=== PATIENT | female | born 1985 | race Caucasian/White ===

== ENCOUNTER → 2020-08-12 11:35 | Outpatient (CLI) | payer OTHER, SELFPAY ==
--- NOTE | 2020-08-12 11:37 | DI.RAD.S_ITS ---
PROCEDURE: XR LUMBAR SPINE MIN 4V COMPARISON: None. INDICATIONS: Progressive lower back pain FINDINGS: 6 views of the lumbar spine demonstrate no fracture or subluxation. Vertebral body heights are maintained. There is disc space narrowing at L5-S1 consistent with disc disease at this level. The remaining intervertebral disc spaces are maintained. There are no focal osseous lesions. The sacroiliac joints and sacrum are intact. Visualized bowel gas pattern is nonspecific. IMPRESSION: 1. Degenerative disc disease at L5-S1. 2. No other significant abnormality. Dictated by: Aamir Collado M.D. on 08/12/2020 at 12:43 Approved by: Aamir Collado M.D. on 08/12/2020 at 12:44
== END ==
PROVIDERS: PCP Family Medicine; Referring Provider Family Medicine; Visit Provider Family Medicine
DX: M54.5 Low back pain (principal); M51.37 Other intervertebral disc degeneration, lumbosacral region
CPT/HCPCS: 72110

== ENCOUNTER 2020-12-03 08:15 | Outpatient (RCR) | payer OTHER, SELFPAY ==
--- NOTE | 2020-08-26 13:06 | PT.OIE ---
Current Diagnoses Low back pain (08/26/20) Abnormal posture (08/26/20) Weakness (08/26/20) Past Medical History (Last Updated 08/15/20 @ 19:30 by Jer Yanez DO) Exercise-induced asthma GERD (gastroesophageal reflux disease) Low back pain Visit Care Team Role Provider Type Jer Yanez DO Attending Provider Physician Primary Care Provider Referring Provider Specialty: [facility] Address: [address] [place] [address], [facility] Email: [email or web address] Initial Evaluation PT-OP-A Visit Information Start: 08/26/20 08:45 Freq: Status: Active Protocol: Document 08/26/20 08:56 SAK (Rec: 08/26/20 09:10 SAK [id number]) Out-Patient Physical Therapy Visit Information Visit Information Visit Type Initial Evaluation Visit Start Time 08:15 Visit Stop Time 09:05 Total Visit Minutes 50 Visit Number 1 Number of PROTOCOL OFFICER Visits 0 Evaluation Information Evaluation Date 08/26/20 PT-OP-B Current Condition Start: 08/26/20 08:45 Freq: Status: Active Protocol: Document 08/26/20 08:56 SAK (Rec: 08/26/20 09:10 SAK [id number]) Current Condition History of Current Condition Onset Date 8 years Current Complaints function-limiting LBP, posterior hip pain History of Current Condition pain comes and goes, no known cause. Worse with any lower body exercises, nagging pain, worst when flexed at trunk. Rarely tingling right foot. First noticed when she did lifts. Likes to run 3-5 miles per day but this currently causes pain. Tries to do core exercises but pain stopped her recently with double leg lift. One of most painful things is coughing and sneezing. 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 Prior Treatments and Tests x-ray: arthritis L5S1 Heat helpful, allergic to cold Treatment Goals Patient/Caregiver Goals Wants to be able to do usual exercise or activity without pain. Prior Functional Status Baseline Function- ADL's Independent Baseline Function- Mobility Independent Baseline Function- Gait no prob Baseline Function- Work/School no pain Current Functional Impairments (Reported) Functional Limitations- ADL's squatting painful Functional Limitations- Mobility/Gait some pain, variable Functional Limitations- Work/School not currently working due to recent move. 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 PT-OP-C Subjective Start: 08/26/20 08:45 Freq: Status: Active Protocol: Document 08/26/20 08:56 [facility] (Rec: 08/26/20 11:11 [facility] [id number]) Patient Questionnaires Oswestry Low Back Index Oswestry Score 6% OP-PT Pain Assessment Pain Assessment Grid Paper Pain Assessment Grid Completed Yes Location central lumbar spine, right buttock and lateral hip Intensity 4 Scale Used Numeric (0 - 10) Description Aching,Chronic,Pressure,Tender Pain Aggravating Factors Activity,Exercise,Bending, Lifting,Coughing Pain Alleviating Factors Heat,Inactivity,Rest Pain Behaviors Pain Behaviors Facial Grimacing,Wincing PT-OP-F Manual Assessment Start: 08/26/20 08:45 Freq: Status: Active Protocol: Document 08/26/20 08:56 [facility] (Rec: 08/26/20 11:11 [facility] [id number]) Manual Assessments Soft Tissue Assessment Soft Tissue Mobility Assessment decreased STM right piriformis Joint Mobility Assessment Joint Mobility Assessment decreased AP mobility lumbar spine PT-OP-G Mobility & Gait Start: 08/26/20 08:45 Freq: Status: Active Protocol: Document 08/26/20 08:56 [facility] (Rec: 08/26/20 11:11 [facility] [id number]) OP Mobility Evaluation Functional Movements Lifting and Carrying painful Squats painful OP Gait Assessment Gait Gait Assistance Required: Independent Assistive Devices Assistive Device None PT-OP-H Neuro Start: 08/26/20 08:45 Freq: Status: Active Protocol: Document 08/26/20 08:56 [facility] (Rec: 08/26/20 11:11 [facility] [id number]) Sensation Evaluation Gross Sensation Gross Sensation WNL Comments Summary Comments occasional tingling into right foot PT-OP-L Special Tests Start: 08/26/20 08:45 Freq: Status: Active Protocol: Document 08/26/20 08:56 [facility] (Rec: 08/26/20 11:11 [facility] [id number]) Special Tests Lumbar Spine Special Tests Stork Test Test Results increased movement right Straight Leg Raise Test Results negative gregorio Manual Traction Test Results positive decrease in pain PT-OP-M Strength Start: 08/26/20 08:45 Freq: Status: Active Protocol: Document 08/26/20 08:56 [facility] (Rec: 08/26/20 11:11 [facility] [id number]) Trunk Strength Trunk Manual Muscle Testing Testing Position Supine Flexion 4- Good- Extension 4- Good- Core Stabilization poor in sitting, fair supine Comments painful Hip Strength Hip Manual Muscle Testing Right Flexion (L2) 4- Good- Extension (S1) 4- Good- Abduction 4+ Good+ External Rotation 4- Good- Internal Rotation 4+ Good+ Left Flexion (L2) 4 Good Extension (S1) 4- Good- Abduction 4+ Good+ External Rotation 4- Good- Internal Rotation 4+ Good+ Knee Strength Knee Manual Muscle Testing gregorio Flexion (S2) 5 Normal Extension (L3) 5 Normal Ankle/Foot Strength Ankle and Foot Manual Muscle Testing gregorio Dorsiflexion (L4) 5 Normal Plantarflexion (S1) 5 Normal Toe Strength Toe Manual Muscle Testing Great Toe Extension 5 Normal Comments gregorio PT-OP-Q Treatments Start: 08/26/20 08:45 Freq: Status: Active Protocol: Document 08/26/20 08:56 [facility] (Rec: 08/26/20 11:11 [facility] [id number]) Self-Care/Home Management Treatment Education Patient Education Home Exercise Program Other Education issued written HEP PT-OP-R Modalities Start: 08/26/20 08:45 Freq: Status: Active Protocol: Document 08/26/20 08:56 [facility] (Rec: 08/26/20 11:11 [facility] [id number]) Hot Pack/Cold Pack Treatment Hot Pack Location lumbar spine, posterior hips Patient Position Hooklying Treatment Duration (minutes) 15 Patient Tolerance Good PT-OP-T Assessment and Plan Start: 08/26/20 08:45 Freq: Status: Active Protocol: Document 08/26/20 08:56 [facility] (Rec: 08/26/20 11:11 [facility] [id number]) Physical Therapy Assessment Impairments Impairments Activity Tolerance,Pain, Posture,Strength Goals 4 Impairment postural dysfunction Retirement Goal (LTG) Patient to demonstrate improved postural awareness and postural alignment statically, and dynamically with functional activities LTG Duration 10/25/20 3 Impairment decreased weakness in core and poor core stabilization Short Term Goal (STG) Patient to be instructed in HEP to address impairments STG Duration 09/24/20 Retirement Goal (LTG) Patient to be independent and compliant with HEP and will demonstrate improved core strength to 5/5 and good core stabilization during functional activities LTG Duration 10/25/20 2 Impairment pain with sneezing and coughing Administration Internship Goal (LTG) Patient will be able to sneeze or cough without pain LTG Duration 10/25/20 1 Impairment back, pelvis, and hip pain with usual exercises Administration Internship Goal (LTG) Patient will be able to perform modified HEP routine and return to running with minimal to no pain LTG Duration 10/25/20 Assessment Summary Assessment Patient presents with function -limiting pain in low back, right buttock and lateral hip with occasional radicular symptoms. Instability noted in pelvis right greater than left. X-ray showed arthritis L5S1. Impairments include poor core stabilization and core weakness, postural deficits, habitual positions and posturing, poor body mechanics. Feel patient sandra benefit from skilled physical therapy to help her improve her core strength and stabilization, improve her posture and body mechanics, and be instructed in HEP. Manual therapy may include manual traction and soft tissue mobilization, and may include modalities for pain management. Physical Therapy Plan Frequency and Duration Frequency of Treatment 2x/Week Duration of Treatment 8 weeks Plan of Care Start Date 08/26/20 Plan of Care End Date 10/25/20 Therapeutic Interventions Therapeutic Interventions Home Exercise Program,Joint Mobilizations,Manual Therapy, Neuromuscular Re-education, Patient/Caregiver Education, Self-Care/Home Management,Soft Tissue Mobilization,Taping, Therapeutic Activities, Therapeutic Exercises Modalities Electric Stimulation,Hot Packs ,Traction- Mechanical, Ultrasound Next Visit Focus/Plan Next Note Type Treatment Note Next Visit Plan Review HEP, discuss posture photos, add wall posture exercise. Further patient education regarding spinal stabilization with functional activities and avoidance of possible habitual positions contributing to poain
--- NOTE | 2020-08-26 13:07 | PT.OPPOC ---
Physical, Occupational & Speech Therapy At [facility] Current Diagnoses Low back pain (08/26/20) Abnormal posture (08/26/20) Weakness (08/26/20) Visit Care Team Role Provider Type Jer Yanez DO Attending Provider Physician Primary Care Provider Referring Provider Specialty: [facility] Address: [address] [place] [address], [facility] Email: [email or web address] Plan Of Care PT-OP-T Assessment and Plan Start: 08/26/20 08:45 Freq: Status: Active Protocol: Document 08/26/20 08:56 [facility] (Rec: 08/26/20 11:11 SAK [id number]) Physical Therapy Assessment Impairments Impairments Activity Tolerance,Pain, Posture,Strength Goals 4 Impairment postural dysfunction [facility] Goal (LTG) Patient to demonstrate improved postural awareness and postural alignment statically, and dynamically with functional activities LTG Duration 10/25/20 3 Impairment decreased weakness in core and poor core stabilization Short Term Goal (STG) Patient to be instructed in HEP to address impairments STG Duration 09/24/20 [facility] Goal (LTG) Patient to be independent and compliant with HEP and will demonstrate improved core strength to 5/5 and good core stabilization during functional activities LTG Duration 10/25/20 2 Impairment pain with sneezing and coughing [facility] Goal (LTG) Patient will be able to sneeze or cough without pain LTG Duration 10/25/20 1 Impairment back, pelvis, and hip pain with usual exercises [facility] Goal (LTG) Patient will be able to perform modified HEP routine and return to running with minimal to no pain LTG Duration 10/25/20 Assessment Summary Assessment Patient presents with function -limiting pain in low back, right buttock and lateral hip with occasional radicular symptoms. Instability noted in pelvis right greater than left. X-ray showed arthritis L5S1. Impairments include poor core stabilization and core weakness, postural deficits, habitual positions and posturing, poor body mechanics. Feel patient sandra benefit from skilled physical therapy to help her improve her core strength and stabilization, improve her posture and body mechanics, and be instructed in HEP. Manual therapy may include manual traction and soft tissue mobilization, and may include modalities for pain management. Physical Therapy Plan Frequency and Duration Frequency of Treatment 2x/Week Duration of Treatment 8 weeks Plan of Care Start Date 08/26/20 Plan of Care End Date 10/25/20 Therapeutic Interventions Therapeutic Interventions Home Exercise Program,Joint Mobilizations,Manual Therapy, Neuromuscular Re-education, Patient/Caregiver Education, Self-Care/Home Management,Soft Tissue Mobilization,Taping, Therapeutic Activities, Therapeutic Exercises Modalities Electric Stimulation,Hot Packs ,Traction- Mechanical, Ultrasound Next Visit Focus/Plan Next Note Type Treatment Note Next Visit Plan Review HEP, discuss posture photos, add wall posture exercise. Further patient education regarding spinal stabilization with functional activities and avoidance of possible habitual positions contributing to poain Plan of Care Dates Plan of Care Start Date 08/26/20 Plan of Care End Date 10/25/20 Electronically Signed by: Argelia Peck, PT 08/26/20 [id number] Please Sign and Return: I have reviewed this Plan of Care and certify that the skilled therapy services above are required to meet the patient?s needs. Physician Signature Date Printed Name and Credentials Clinical Instructor Signature Printed Name and Credentials
--- NOTE | 2020-08-28 17:01 | PT.OTN ---
Current Diagnoses Low back pain (08/28/20) Abnormal posture (08/28/20) Weakness (08/28/20) Physical Therapy Treatment Note PT-OP-A Visit Information Start: 08/26/20 08:45 Freq: Status: Active Protocol: Document 08/28/20 08:13 SAK (Rec: 08/28/20 09:10 [facility] [id number]) Out-Patient Physical Therapy Visit Information Visit Information Visit Type Treatment Note Visit Start Time 08:15 Visit Stop Time 09:14 Total Visit Minutes 59 Visit Number 2 Number of TELEPHONE MAINTAINER Visits 0 PT-OP-B Current Condition Start: 08/26/20 08:45 Freq: Status: Active Protocol: Document 08/28/20 08:13 SAK (Rec: 08/28/20 09:10 [facility] [id number]) Current Condition History of Current Condition Onset Date 8 years Current Complaints function-limiting LBP, posterior hip pain History of Current Condition pain comes and goes, no known cause. Worse with any lower body exercises, nagging pain, worst when flexed at trunk. Rarely tingling right foot. First noticed when she did lifts. Likes to run 3-5 miles per day but this currently causes pain. Tries to do core exercises but pain stopped her recently with double leg lift. One of most painful things is coughing and sneezing. Also c/o pain when she bends forward to pickle maker her dog. Prior Treatments and Tests x-ray: arthritis L5S1 Heat helpful, allergic to cold PT-OP-C Subjective Start: 08/26/20 08:45 Freq: Status: Active Protocol: Document 08/28/20 08:13 SAK (Rec: 08/28/20 09:10 [facility] [id number]) OP-PT Subjective Patient Comments Patient Comments Reports being surprised her pain is already a little better, not quite as stiff this am. PT-OP-F Manual Assessment Start: 08/26/20 08:45 Freq: Status: Active Protocol: Document 08/26/20 08:56 SAK (Rec: 08/26/20 11:11 [facility] [id number]) Manual Assessments Soft Tissue Assessment Soft Tissue Mobility Assessment decreased STM right piriformis Joint Mobility Assessment Joint Mobility Assessment decreased AP mobility lumbar spine PT-OP-G Mobility & Gait Start: 08/26/20 08:45 Freq: Status: Active Protocol: Document 08/26/20 08:56 SAK (Rec: 08/26/20 11:11 [facility] [id number]) OP Mobility Evaluation Functional Movements Lifting and Carrying painful Squats painful OP Gait Assessment Gait Gait Assistance Required: Independent Assistive Devices Assistive Device None PT-OP-H Neuro Start: 08/26/20 08:45 Freq: Status: Active Protocol: Document 08/26/20 08:56 [facility] (Rec: 08/26/20 11:11 [facility] [id number]) Sensation Evaluation Gross Sensation Gross Sensation WNL Comments Summary Comments occasional tingling into right foot PT-OP-L Special Tests Start: 08/26/20 08:45 Freq: Status: Active Protocol: Document 08/26/20 08:56 [facility] (Rec: 08/26/20 11:11 [facility] [id number]) Special Tests Lumbar Spine Special Tests Stork Test Test Results increased movement right Straight Leg Raise Test Results negative gregorio Manual Traction Test Results positive decrease in pain PT-OP-M Strength Start: 08/26/20 08:45 Freq: Status: Active Protocol: Document 08/26/20 08:56 [facility] (Rec: 08/26/20 11:11 [facility] [id number]) Trunk Strength Trunk Manual Muscle Testing Testing Position Supine Flexion 4- Good- Extension 4- Good- Core Stabilization poor in sitting, fair supine Comments painful Hip Strength Hip Manual Muscle Testing Right Flexion (L2) 4- Good- Extension (S1) 4- Good- Abduction 4+ Good+ External Rotation 4- Good- Internal Rotation 4+ Good+ Left Flexion (L2) 4 Good Extension (S1) 4- Good- Abduction 4+ Good+ External Rotation 4- Good- Internal Rotation 4+ Good+ Knee Strength Knee Manual Muscle Testing gregorio Flexion (S2) 5 Normal Extension (L3) 5 Normal Ankle/Foot Strength Ankle and Foot Manual Muscle Testing gregorio Dorsiflexion (L4) 5 Normal Plantarflexion (S1) 5 Normal Toe Strength Toe Manual Muscle Testing Great Toe Extension 5 Normal Comments gregorio PT-OP-Q Treatments Start: 08/26/20 08:45 Freq: Status: Active Protocol: Document 08/28/20 08:13 SAK (Rec: 08/28/20 09:10 [facility] [id number]) Therapeutic Exercises Supine Exercises bridge Reps/Minutes 10x Comments segmental Sidelying Exercises hip abd Reps/Minutes 10x Comments cues for activating core, keeping LE's parallel reverse clam Reps/Minutes 10x clam Reps/Minutes 10x Comments verbal and manual cues Standing Exercises squats Reps/Minutes 10x Comments emphasis on gluteal activation wall posture Reps/Minutes 10x Other Exercises quadriped UE/LE lift Reps/Minutes 10x Comments verbal and manual cues for technique and alignment Gait Training Gait Activity pre-gait gluteal activation Distance/Duration 3 min Self-Care/Home Management Treatment Education Other Education bed positioning (patient tendency is to sleep on stomach, right LE pulled up) PT-OP-R Modalities Start: 08/26/20 08:45 Freq: Status: Active Protocol: Document 08/28/20 08:13 SAK (Rec: 08/28/20 09:10 SAK [id number]) Hot Pack/Cold Pack Treatment Hot Pack Location lumbar spine, posterior hips Patient Position Hooklying Treatment Duration (minutes) 15 Patient Tolerance Good PT-OP-T Assessment and Plan Start: 08/26/20 08:45 Freq: Status: Active Protocol: Document 08/28/20 08:13 SAK (Rec: 08/28/20 09:10 SAK [id number]) Physical Therapy Assessment Goals 4 Impairment postural dysfunction Computator Goal (LTG) Patient to demonstrate improved postural awareness and postural alignment statically, and dynamically with functional activities LTG Duration 10/25/20 3 Impairment decreased weakness in core and poor core stabilization Short Term Goal (STG) Patient to be instructed in HEP to address impairments STG Duration 09/24/20 Halfway Goal (LTG) Patient to be independent and compliant with HEP and will demonstrate improved core strength to 5/5 and good core stabilization during functional activities LTG Duration 10/25/20 2 Impairment pain with sneezing and coughing Halfway Goal (LTG) Patient will be able to sneeze or cough without pain LTG Duration 10/25/20 1 Impairment back, pelvis, and hip pain with usual exercises Computator Goal (LTG) Patient will be able to perform modified HEP routine and return to running with minimal to no pain LTG Duration 10/25/20 Assessment Summary Assessment Patient reported benefit from first PT visit, compliant to HEP. Needs mod verbal and manual cues for postural alignment and core stabilization with all therapeutic exercises as she tends toward excess extension at lower lumbar region statically, and dynamically with function and ther ex including end of squats Physical Therapy Plan Frequency and Duration Frequency of Treatment 2x/Week Duration of Treatment 8 weeks Plan of Care Start Date 08/26/20 Plan of Care End Date 10/25/20 Therapeutic Interventions Therapeutic Interventions Home Exercise Program,Joint Mobilizations,Manual Therapy, Neuromuscular Re-education, Patient/Caregiver Education, Self-Care/Home Management,Soft Tissue Mobilization,Taping, Therapeutic Activities, Therapeutic Exercises Modalities Hot Packs,Traction- Mechanical ,Ultrasound Next Visit Focus/Plan Next Note Type Treatment Note Next Visit Plan Review posture and body mechanics principles, assess squat form, wall posture, quadriped arm and leg lift form. Sport cord with emphasis on alignment and core stabiization
--- NOTE | 2020-09-02 08:40 | PT-OP ANOTE ---
cancelled appt via [email or web address]
--- NOTE | 2020-09-04 15:00 | PT.OTN ---
Current Diagnoses Low back pain (09/04/20) Abnormal posture (09/04/20) Weakness (09/04/20) Physical Therapy Treatment Note PT-OP-A Visit Information Start: 08/26/20 08:45 Freq: Status: Active Protocol: Document 09/02/20 08:40 SAK (Rec: 09/02/20 08:40 SAK [id number]) Out-Patient Physical Therapy Visit Information Visit Information Visit Type Cancellation Visit Note via Televox PT-OP-B Current Condition Start: 08/26/20 08:45 Freq: Status: Active Protocol: Document 08/28/20 08:13 SAK (Rec: 08/28/20 09:10 SAK [id number]) Current Condition History of Current Condition Onset Date 8 years Current Complaints function-limiting LBP, posterior hip pain History of Current Condition pain comes and goes, no known cause. Worse with any lower body exercises, nagging pain, worst when flexed at trunk. Rarely tingling right foot. First noticed when she did lifts. Likes to run 3-5 miles per day but this currently causes pain. Tries to do core exercises but pain stopped her recently with double leg lift. One of most painful things is coughing and sneezing. Also c/o pain when she bends forward to seed cone picker her dog. Prior Treatments and Tests x-ray: arthritis L5S1 Heat helpful, allergic to cold PT-OP-C Subjective Start: 08/26/20 08:45 Freq: Status: Active Protocol: Document 09/04/20 09:04 SAK (Rec: 09/04/20 09:49 SAK [id number]) OP-PT Subjective Patient Comments Patient Comments Went snowboarding, some increase in pain. Ran 1 1/2 miles also still had some pain . Feels exercises are helpful, working on not hyperextending through her spine with squats . Unable to do a lift due to pain PT-OP-F Manual Assessment Start: 08/26/20 08:45 Freq: Status: Active Protocol: Document 08/26/20 08:56 SAK (Rec: 08/26/20 11:11 SAK [id number]) Manual Assessments Soft Tissue Assessment Soft Tissue Mobility Assessment decreased STM right piriformis Joint Mobility Assessment Joint Mobility Assessment decreased AP mobility lumbar spine PT-OP-G Mobility & Gait Start: 08/26/20 08:45 Freq: Status: Active Protocol: Document 08/26/20 08:56 [facility] (Rec: 08/26/20 11:11 [facility] [id number]) OP Mobility Evaluation Functional Movements Lifting and Carrying painful Squats painful OP Gait Assessment Gait Gait Assistance Required: Independent Assistive Devices Assistive Device None PT-OP-H Neuro Start: 08/26/20 08:45 Freq: Status: Active Protocol: Document 08/26/20 08:56 SAK (Rec: 08/26/20 11:11 [facility] [id number]) Sensation Evaluation Gross Sensation Gross Sensation WNL Comments Summary Comments occasional tingling into right foot PT-OP-L Special Tests Start: 08/26/20 08:45 Freq: Status: Active Protocol: Document 08/26/20 08:56 [facility] (Rec: 08/26/20 11:11 [facility] [id number]) Special Tests Lumbar Spine Special Tests Stork Test Test Results increased movement right Straight Leg Raise Test Results negative gregorio Manual Traction Test Results positive decrease in pain PT-OP-M Strength Start: 08/26/20 08:45 Freq: Status: Active Protocol: Document 08/26/20 08:56 [facility] (Rec: 08/26/20 11:11 [facility] [id number]) Trunk Strength Trunk Manual Muscle Testing Testing Position Supine Flexion 4- Good- Extension 4- Good- Core Stabilization poor in sitting, fair supine Comments painful Hip Strength Hip Manual Muscle Testing Right Flexion (L2) 4- Good- Extension (S1) 4- Good- Abduction 4+ Good+ External Rotation 4- Good- Internal Rotation 4+ Good+ Left Flexion (L2) 4 Good Extension (S1) 4- Good- Abduction 4+ Good+ External Rotation 4- Good- Internal Rotation 4+ Good+ Knee Strength Knee Manual Muscle Testing gregorio Flexion (S2) 5 Normal Extension (L3) 5 Normal Ankle/Foot Strength Ankle and Foot Manual Muscle Testing gregorio Dorsiflexion (L4) 5 Normal Plantarflexion (S1) 5 Normal Toe Strength Toe Manual Muscle Testing Great Toe Extension 5 Normal Comments gregorio PT-OP-Q Treatments Start: 08/26/20 08:45 Freq: Status: Active Protocol: Document 09/04/20 09:04 SAK (Rec: 09/04/20 09:49 SAK [id number]) Cardio Equipment Treadmill Duration (Minutes) 10 Speed 3.5, 5.0 Incline 0 Other filming with patient's cell phone to assess form Gym Equipment Shuttle Balance chains red Reps/Duration 5 Comments emphais on core activation, neutral spine Therapeutic Exercises Supine Exercises LTR Equipment Used ball Reps/Minutes 10x groin Reps/Minutes 2x Comments strap IT band Supine Exercise Name stretch Reps/Minutes 2x Comments strap hamstring stretch Reps/Minutes 2x Comments strap bridge Reps/Minutes 10x Comments segmental Standing Exercises squats Reps/Minutes 10x Comments emphasis on gluteal activation , no lumbar hyperextension Self-Care/Home Management Treatment Education Patient Education Body Mechanics,Posture Other Education neutral posture statically and dynamically including with walking and running; using video taken by PT with patient 's cell phone PT-OP-R Modalities Start: 08/26/20 08:45 Freq: Status: Active Protocol: Document 08/28/20 08:13 SAK (Rec: 08/28/20 09:10 SAK [id number]) Hot Pack/Cold Pack Treatment Hot Pack Location lumbar spine, posterior hips Patient Position Hooklying Treatment Duration (minutes) 15 Patient Tolerance Good PT-OP-T Assessment and Plan Start: 08/26/20 08:45 Freq: Status: Active Protocol: Document 09/04/20 09:04 SAK (Rec: 09/04/20 09:49 SAK [id number]) Physical Therapy Assessment Rehab Potential Rehabilitation Potential Good Impairments Impairments Activity Tolerance,Pain, Posture,Strength Goals 4 Impairment postural dysfunction Care Home Goal (LTG) Patient to demonstrate improved postural awareness and postural alignment statically, and dynamically with functional activities LTG Duration 10/25/20 3 Impairment decreased weakness in core and poor core stabilization Short Term Goal (STG) Patient to be instructed in HEP to address impairments STG Duration 09/24/20 Care Home Goal (LTG) Patient to be independent and compliant with HEP and will demonstrate improved core strength to 5/5 and good core stabilization during functional activities LTG Duration 10/25/20 2 Impairment pain with sneezing and coughing Care Home Goal (LTG) Patient will be able to sneeze or cough without pain LTG Duration 10/25/20 1 Impairment back, pelvis, and hip pain with usual exercises Care Home Goal (LTG) Patient will be able to perform modified HEP routine and return to running with minimal to no pain LTG Duration 10/25/20 Assessment Summary Assessment Patient has difficulty avoiding hyperextension through lumbar spine with all activities, needs frequent cues. Video used to educate patient further on alignment during walking and running on treadmill. Physical Therapy Plan Frequency and Duration Frequency of Treatment 2x/Week Duration of Treatment 8 weeks Plan of Care Start Date 08/26/20 Plan of Care End Date 10/25/20 Therapeutic Interventions Therapeutic Interventions Home Exercise Program,Joint Mobilizations,Manual Therapy, Neuromuscular Re-education, Patient/Caregiver Education, Self-Care/Home Management,Soft Tissue Mobilization,Taping, Therapeutic Activities, Therapeutic Exercises Modalities Hot Packs,Traction- Mechanical ,Ultrasound Next Visit Focus/Plan Next Note Type Treatment Note Next Visit Plan Sport cord next session (ran out of time today). Continue therapeutic exercise progression with emphasis on postural alignment and core stabilization.
--- NOTE | 2020-09-04 15:01 | PT.OTN ---
Current Diagnoses Low back pain (09/04/20) Abnormal posture (09/04/20) Weakness (09/04/20) Physical Therapy Treatment Note PT-OP-A Visit Information Start: 08/26/20 08:45 Freq: Status: Active Protocol: Document 09/04/20 09:04 SAK (Rec: 09/04/20 15:01 SAK [id number]) Out-Patient Physical Therapy Visit Information Visit Information Visit Type Treatment Note Visit Start Time 09:00 Visit Stop Time 09:45 Total Visit Minutes 45 Visit Number 3 PT-OP-B Current Condition Start: 08/26/20 08:45 Freq: Status: Active Protocol: Document 08/28/20 08:13 SAK (Rec: 08/28/20 09:10 SAK [id number]) Current Condition History of Current Condition Onset Date 8 years Current Complaints function-limiting LBP, posterior hip pain History of Current Condition pain comes and goes, no known cause. Worse with any lower body exercises, nagging pain, worst when flexed at trunk. Rarely tingling right foot. First noticed when she did lifts. Likes to run 3-5 miles per day but this currently causes pain. Tries to do core exercises but pain stopped her recently with double leg lift. One of most painful things is coughing and sneezing. Also c/o pain when she bends forward to pick up attendant her dog. Prior Treatments and Tests x-ray: arthritis L5S1 Heat helpful, allergic to cold PT-OP-C Subjective Start: 08/26/20 08:45 Freq: Status: Active Protocol: Document 09/04/20 09:04 SAK (Rec: 09/04/20 09:49 SAK [id number]) OP-PT Subjective Patient Comments Patient Comments Went snowboarding, some increase in pain. Ran 1 1/2 miles also still had some pain . Feels exercises are helpful, working on not hyperextending through her spine with squats . Unable to do a lift due to pain PT-OP-F Manual Assessment Start: 08/26/20 08:45 Freq: Status: Active Protocol: Document 08/26/20 08:56 SAK (Rec: 08/26/20 11:11 SAK [id number]) Manual Assessments Soft Tissue Assessment Soft Tissue Mobility Assessment decreased STM right piriformis Joint Mobility Assessment Joint Mobility Assessment decreased AP mobility lumbar spine PT-OP-G Mobility & Gait Start: 08/26/20 08:45 Freq: Status: Active Protocol: Document 08/26/20 08:56 [facility] (Rec: 08/26/20 11:11 [facility] [id number]) OP Mobility Evaluation Functional Movements Lifting and Carrying painful Squats painful OP Gait Assessment Gait Gait Assistance Required: Independent Assistive Devices Assistive Device None PT-OP-H Neuro Start: 08/26/20 08:45 Freq: Status: Active Protocol: Document 08/26/20 08:56 [facility] (Rec: 08/26/20 11:11 [facility] [id number]) Sensation Evaluation Gross Sensation Gross Sensation WNL Comments Summary Comments occasional tingling into right foot PT-OP-L Special Tests Start: 08/26/20 08:45 Freq: Status: Active Protocol: Document 08/26/20 08:56 [facility] (Rec: 08/26/20 11:11 [facility] [id number]) Special Tests Lumbar Spine Special Tests Stork Test Test Results increased movement right Straight Leg Raise Test Results negative gregorio Manual Traction Test Results positive decrease in pain PT-OP-M Strength Start: 08/26/20 08:45 Freq: Status: Active Protocol: Document 08/26/20 08:56 [facility] (Rec: 08/26/20 11:11 [facility] [id number]) Trunk Strength Trunk Manual Muscle Testing Testing Position Supine Flexion 4- Good- Extension 4- Good- Core Stabilization poor in sitting, fair supine Comments painful Hip Strength Hip Manual Muscle Testing Right Flexion (L2) 4- Good- Extension (S1) 4- Good- Abduction 4+ Good+ External Rotation 4- Good- Internal Rotation 4+ Good+ Left Flexion (L2) 4 Good Extension (S1) 4- Good- Abduction 4+ Good+ External Rotation 4- Good- Internal Rotation 4+ Good+ Knee Strength Knee Manual Muscle Testing gregorio Flexion (S2) 5 Normal Extension (L3) 5 Normal Ankle/Foot Strength Ankle and Foot Manual Muscle Testing gregorio Dorsiflexion (L4) 5 Normal Plantarflexion (S1) 5 Normal Toe Strength Toe Manual Muscle Testing Great Toe Extension 5 Normal Comments gregorio PT-OP-Q Treatments Start: 08/26/20 08:45 Freq: Status: Active Protocol: Document 09/04/20 09:04 SAK (Rec: 09/04/20 09:49 [facility] [id number]) Cardio Equipment Treadmill Duration (Minutes) 10 Speed 3.5, 5.0 Incline 0 Other filming with patient's cell phone to assess form Gym Equipment Shuttle Balance chains red Reps/Duration 5 Comments emphais on core activation, neutral spine Therapeutic Exercises Supine Exercises LTR Equipment Used ball Reps/Minutes 10x groin Reps/Minutes 2x Comments strap IT band Supine Exercise Name stretch Reps/Minutes 2x Comments strap hamstring stretch Reps/Minutes 2x Comments strap bridge Reps/Minutes 10x Comments segmental Standing Exercises squats Reps/Minutes 10x Comments emphasis on gluteal activation , no lumbar hyperextension Self-Care/Home Management Treatment Education Patient Education Body Mechanics,Posture Other Education neutral posture statically and dynamically including with walking and running; using video taken by PT with patient 's cell phone PT-OP-R Modalities Start: 08/26/20 08:45 Freq: Status: Active Protocol: Document 08/28/20 08:13 SAK (Rec: 08/28/20 09:10 SAK [id number]) Hot Pack/Cold Pack Treatment Hot Pack Location lumbar spine, posterior hips Patient Position Hooklying Treatment Duration (minutes) 15 Patient Tolerance Good PT-OP-T Assessment and Plan Start: 08/26/20 08:45 Freq: Status: Active Protocol: Document 09/04/20 09:04 SAK (Rec: 09/04/20 09:49 SAK [id number]) Physical Therapy Assessment Rehab Potential Rehabilitation Potential Good Impairments Impairments Activity Tolerance,Pain, Posture,Strength Goals 4 Impairment postural dysfunction Long-Term Goal (LTG) Patient to demonstrate improved postural awareness and postural alignment statically, and dynamically with functional activities LTG Duration 10/25/20 3 Impairment decreased weakness in core and poor core stabilization Short Term Goal (STG) Patient to be instructed in HEP to address impairments STG Duration 09/24/20 Long-Term Goal (LTG) Patient to be independent and compliant with HEP and will demonstrate improved core strength to 5/5 and good core stabilization during functional activities LTG Duration 10/25/20 2 Impairment pain with sneezing and coughing Long-Term Goal (LTG) Patient will be able to sneeze or cough without pain LTG Duration 10/25/20 1 Impairment back, pelvis, and hip pain with usual exercises Bail Bond Agent Goal (LTG) Patient will be able to perform modified HEP routine and return to running with minimal to no pain LTG Duration 10/25/20 Assessment Summary Assessment Patient has difficulty avoiding hyperextension through lumbar spine with all activities, needs frequent cues. Video used to educate patient further on alignment during walking and running on treadmill. Physical Therapy Plan Frequency and Duration Frequency of Treatment 2x/Week Duration of Treatment 8 weeks Plan of Care Start Date 08/26/20 Plan of Care End Date 10/25/20 Therapeutic Interventions Therapeutic Interventions Home Exercise Program,Joint Mobilizations,Manual Therapy, Neuromuscular Re-education, Patient/Caregiver Education, Self-Care/Home Management,Soft Tissue Mobilization,Taping, Therapeutic Activities, Therapeutic Exercises Modalities Hot Packs,Traction- Mechanical ,Ultrasound Next Visit Focus/Plan Next Note Type Treatment Note Next Visit Plan Sport cord next session (ran out of time today). Continue therapeutic exercise progression with emphasis on postural alignment and core stabilization.
--- NOTE | 2020-09-25 10:24 | PT.OTN ---
Current Diagnoses Low back pain (09/25/20) Abnormal posture (09/25/20) Weakness (09/25/20) Physical Therapy Treatment Note PT-OP-A Visit Information Start: 08/26/20 08:45 Freq: Status: Active Protocol: Document 09/25/20 08:16 SAK (Rec: 09/25/20 09:05 SAK [id number]) Out-Patient Physical Therapy Visit Information Visit Information Visit Type Treatment Note Visit Start Time 08:16 Visit Stop Time 06:12 Total Visit Minutes 56 Visit Number 4 PT-OP-B Current Condition Start: 08/26/20 08:45 Freq: Status: Active Protocol: Document 08/28/20 08:13 SAK (Rec: 08/28/20 09:10 SAK [id number]) Current Condition History of Current Condition Onset Date 8 years Current Complaints function-limiting LBP, posterior hip pain History of Current Condition pain comes and goes, no known cause. Worse with any lower body exercises, nagging pain, worst when flexed at trunk. Rarely tingling right foot. First noticed when she did lifts. Likes to run 3-5 miles per day but this currently causes pain. Tries to do core exercises but pain stopped her recently with double leg lift. One of most painful things is coughing and sneezing. Also c/o pain when she bends forward to brain picker her dog. Prior Treatments and Tests x-ray: arthritis L5S1 Heat helpful, allergic to cold PT-OP-C Subjective Start: 08/26/20 08:45 Freq: Status: Active Protocol: Document 09/25/20 08:16 SAK (Rec: 09/25/20 09:05 SAK [id number]) OP-PT Subjective Patient Comments Patient Comments Feels she is doing her exercises better,trying to focus on not hyperextending, some less pain, has been able to run a little but reports still has pain after. PT-OP-F Manual Assessment Start: 08/26/20 08:45 Freq: Status: Active Protocol: Document 08/26/20 08:56 SAK (Rec: 08/26/20 11:11 SAK [id number]) Manual Assessments Soft Tissue Assessment Soft Tissue Mobility Assessment decreased STM right piriformis Joint Mobility Assessment Joint Mobility Assessment decreased AP mobility lumbar spine PT-OP-G Mobility & Gait Start: 08/26/20 08:45 Freq: Status: Active Protocol: Document 08/26/20 08:56 [facility] (Rec: 08/26/20 11:11 [facility] [id number]) OP Mobility Evaluation Functional Movements Lifting and Carrying painful Squats painful OP Gait Assessment Gait Gait Assistance Required: Independent Assistive Devices Assistive Device None PT-OP-H Neuro Start: 08/26/20 08:45 Freq: Status: Active Protocol: Document 08/26/20 08:56 [facility] (Rec: 08/26/20 11:11 [facility] [id number]) Sensation Evaluation Gross Sensation Gross Sensation WNL Comments Summary Comments occasional tingling into right foot PT-OP-L Special Tests Start: 08/26/20 08:45 Freq: Status: Active Protocol: Document 08/26/20 08:56 [facility] (Rec: 08/26/20 11:11 [facility] [id number]) Special Tests Lumbar Spine Special Tests Stork Test Test Results increased movement right Straight Leg Raise Test Results negative gregorio Manual Traction Test Results positive decrease in pain PT-OP-M Strength Start: 08/26/20 08:45 Freq: Status: Active Protocol: Document 08/26/20 08:56 [facility] (Rec: 08/26/20 11:11 [facility] [id number]) Trunk Strength Trunk Manual Muscle Testing Testing Position Supine Flexion 4- Good- Extension 4- Good- Core Stabilization poor in sitting, fair supine Comments painful Hip Strength Hip Manual Muscle Testing Right Flexion (L2) 4- Good- Extension (S1) 4- Good- Abduction 4+ Good+ External Rotation 4- Good- Internal Rotation 4+ Good+ Left Flexion (L2) 4 Good Extension (S1) 4- Good- Abduction 4+ Good+ External Rotation 4- Good- Internal Rotation 4+ Good+ Knee Strength Knee Manual Muscle Testing gregorio Flexion (S2) 5 Normal Extension (L3) 5 Normal Ankle/Foot Strength Ankle and Foot Manual Muscle Testing gregorio Dorsiflexion (L4) 5 Normal Plantarflexion (S1) 5 Normal Toe Strength Toe Manual Muscle Testing Great Toe Extension 5 Normal Comments gregorio PT-OP-Q Treatments Start: 08/26/20 08:45 Freq: Status: Active Protocol: Document 09/25/20 08:16 SAK (Rec: 09/25/20 09:05 SAK [id number]) Gym Equipment Sport Cord 1 Exercise Details forward walk, end-range slow march Cord/Resistance green Reps/Duration 8x Therapeutic Exercises Supine Exercises bridge Reps/Minutes 10x, 5x Comments segmental, then single leg Standing Exercises sit to stand Equipment Used yardstick for postural alignment Reps/Minutes 10x squats Standing Exercise Name working toward lift Equipment Used yardstick for postural alignment Reps/Minutes 10x Comments emphasis on gluteal activation , no lumbar hyperextension wall posture Reps/Minutes 10x Comments including roll-ups and UE's overhead Gait Training Gait Activity 1 Description forward Surface level Distance/Duration 5 min Treatment Focus neutral posture, positioning ribcage over pelvis Self-Care/Home Management Treatment Education Patient Education Body Mechanics,Posture Other Education neutral posture statically and dynamically including with reaching, lifting, loss prevention supervisor loading/unloading PT-OP-R Modalities Start: 08/26/20 08:45 Freq: Status: Active Protocol: Document 09/25/20 08:16 [facility] (Rec: 09/25/20 10:24 [facility] [id number]) Hot Pack/Cold Pack Treatment Cold Pack Patient Position Hooklying Treatment Duration (minutes) 10 Comments 90/90 posistion PT-OP-T Assessment and Plan Start: 08/26/20 08:45 Freq: Status: Active Protocol: Document 09/25/20 08:16 [facility] (Rec: 09/25/20 10:24 [facility] [id number]) Physical Therapy Assessment Goals 4 Impairment postural dysfunction Skilled Nursing Goal (LTG) Patient to demonstrate improved postural awareness and postural alignment statically, and dynamically with functional activities LTG Duration 10/25/20 3 Impairment decreased weakness in core and poor core stabilization Short Term Goal (STG) Patient to be instructed in HEP to address impairments STG Duration 09/24/20 Skilled Nursing Goal (LTG) Patient to be independent and compliant with HEP and will demonstrate improved core strength to 5/5 and good core stabilization during functional activities LTG Duration 10/25/20 2 Impairment pain with sneezing and coughing Skilled Nursing Goal (LTG) Patient will be able to sneeze or cough without pain LTG Duration 10/25/20 1 Impairment back, pelvis, and hip pain with usual exercises Skilled Nursing Goal (LTG) Patient will be able to perform modified HEP routine and return to running with minimal to no pain LTG Duration 10/25/20 Assessment Summary Assessment Use of mirror and frequent cues for neutral posture including when not doing exercises helping patient become more aware of her habitual hyperextension and posterior thorax positioning. Feel pain with running due to these postural habits and core weakness, patient demonstrating improving understanding. Physical Therapy Plan Frequency and Duration Frequency of Treatment 2x/Week Duration of Treatment 8 weeks Plan of Care Start Date 08/26/20 Plan of Care End Date 10/25/20 Therapeutic Interventions Therapeutic Interventions Home Exercise Program,Joint Mobilizations,Manual Therapy, Neuromuscular Re-education, Patient/Caregiver Education, Self-Care/Home Management,Soft Tissue Mobilization,Taping, Therapeutic Activities, Therapeutic Exercises Modalities Hot Packs,Traction- Mechanical ,Ultrasound Next Visit Focus/Plan Next Note Type Treatment Note Next Visit Plan Continue PT with emphasis on neutral alignment and core stabilization with closed chain function. Add lunges, review quadriped UE/LE lift
--- NOTE | 2020-10-02 17:44 | PT.OTN ---
Current Diagnoses Low back pain (10/02/20) Abnormal posture (10/02/20) Weakness (10/02/20) Physical Therapy Treatment Note PT-OP-A Visit Information Start: 08/26/20 08:45 Freq: Status: Active Protocol: Document 10/02/20 09:47 SAK (Rec: 10/02/20 10:30 SAK [id number]) Out-Patient Physical Therapy Visit Information Visit Information Visit Type Treatment Note Visit Start Time 08:16 Visit Stop Time 06:12 Total Visit Minutes 56 Visit Number 4 PT-OP-B Current Condition Start: 08/26/20 08:45 Freq: Status: Active Protocol: Document 08/28/20 08:13 SAK (Rec: 08/28/20 09:10 SAK [id number]) Current Condition History of Current Condition Onset Date 8 years Current Complaints function-limiting LBP, posterior hip pain History of Current Condition pain comes and goes, no known cause. Worse with any lower body exercises, nagging pain, worst when flexed at trunk. Rarely tingling right foot. First noticed when she did lifts. Likes to run 3-5 miles per day but this currently causes pain. Tries to do core exercises but pain stopped her recently with double leg lift. One of most painful things is coughing and sneezing. Also c/o pain when she bends forward to pick and shovel man her dog. Prior Treatments and Tests x-ray: arthritis L5S1 Heat helpful, allergic to cold PT-OP-C Subjective Start: 08/26/20 08:45 Freq: Status: Active Protocol: Document 09/25/20 08:16 SAK (Rec: 09/25/20 09:05 SAK [id number]) OP-PT Subjective Patient Comments Patient Comments Feels she is doing her exercises better,trying to focus on not hyperextending, some less pain, has been able to run a little but reports still has pain after. PT-OP-F Manual Assessment Start: 08/26/20 08:45 Freq: Status: Active Protocol: Document 08/26/20 08:56 SAK (Rec: 08/26/20 11:11 SAK [id number]) Manual Assessments Soft Tissue Assessment Soft Tissue Mobility Assessment decreased STM right piriformis Joint Mobility Assessment Joint Mobility Assessment decreased AP mobility lumbar spine PT-OP-G Mobility & Gait Start: 08/26/20 08:45 Freq: Status: Active Protocol: Document 08/26/20 08:56 [facility] (Rec: 08/26/20 11:11 [facility] [id number]) OP Mobility Evaluation Functional Movements Lifting and Carrying painful Squats painful OP Gait Assessment Gait Gait Assistance Required: Independent Assistive Devices Assistive Device None PT-OP-H Neuro Start: 08/26/20 08:45 Freq: Status: Active Protocol: Document 08/26/20 08:56 SAK (Rec: 08/26/20 11:11 [facility] [id number]) Sensation Evaluation Gross Sensation Gross Sensation WNL Comments Summary Comments occasional tingling into right foot PT-OP-L Special Tests Start: 08/26/20 08:45 Freq: Status: Active Protocol: Document 08/26/20 08:56 [facility] (Rec: 08/26/20 11:11 [facility] [id number]) Special Tests Lumbar Spine Special Tests Stork Test Test Results increased movement right Straight Leg Raise Test Results negative gregorio Manual Traction Test Results positive decrease in pain PT-OP-M Strength Start: 08/26/20 08:45 Freq: Status: Active Protocol: Document 08/26/20 08:56 [facility] (Rec: 08/26/20 11:11 [facility] [id number]) Trunk Strength Trunk Manual Muscle Testing Testing Position Supine Flexion 4- Good- Extension 4- Good- Core Stabilization poor in sitting, fair supine Comments painful Hip Strength Hip Manual Muscle Testing Right Flexion (L2) 4- Good- Extension (S1) 4- Good- Abduction 4+ Good+ External Rotation 4- Good- Internal Rotation 4+ Good+ Left Flexion (L2) 4 Good Extension (S1) 4- Good- Abduction 4+ Good+ External Rotation 4- Good- Internal Rotation 4+ Good+ Knee Strength Knee Manual Muscle Testing gregorio Flexion (S2) 5 Normal Extension (L3) 5 Normal Ankle/Foot Strength Ankle and Foot Manual Muscle Testing gregorio Dorsiflexion (L4) 5 Normal Plantarflexion (S1) 5 Normal Toe Strength Toe Manual Muscle Testing Great Toe Extension 5 Normal Comments gregorio PT-OP-Q Treatments Start: 08/26/20 08:45 Freq: Status: Active Protocol: Document 10/02/20 09:47 SAK (Rec: 10/02/20 10:30 SAK [id number]) Gym Equipment Shuttle Balance chains red Details bal side to side EO and EC, staggered feet fwd/bck balanace Reps/Duration 5 Comments emphais on core activation, neutral spine Sport Cord 1 Exercise Details forward walk, end-range slow march Cord/Resistance green Reps/Duration 8x Therapeutic Exercises Sidelying Exercises hip abd Equipment Used back and LE's at wall Reps/Minutes 10x Comments cues for activating core, keeping LE's parallel reverse clam Reps/Minutes 10x clam Resistance L1 TB Reps/Minutes 10x Comments verbal and manual cues Standing Exercises resisted hip Standing Exercise Name ab/ad/flex/ext Side bilateral Resistance L1 TB Equipment Used pole for UE support Reps/Minutes 5x ea lunges Reps/Minutes 10x Comments emphasis on neutral spinal alignment squats Standing Exercise Name working toward lift Equipment Used yardstick for postural alignment Reps/Minutes 10x Comments emphasis on gluteal activation , no lumbar hyperextension Other Exercises quadriped UE/LE lift Reps/Minutes 10x Comments verbal and manual cues for technique and alignment Self-Care/Home Management Treatment Education Patient Education Body Mechanics,Posture Other Education neutral posture with reaching overhead Activities Self-Care/Home Management Activities focus on neutral alignment with all household activities PT-OP-R Modalities Start: 08/26/20 08:45 Freq: Status: Active Protocol: Document 10/02/20 09:47 [facility] (Rec: 10/02/20 17:44 [facility] [id number]) Hot Pack/Cold Pack Treatment Hot Pack Location lumbar spine, posterior hips Patient Position Hooklying Treatment Duration (minutes) 15 Patient Tolerance Good PT-OP-T Assessment and Plan Start: 08/26/20 08:45 Freq: Status: Active Protocol: Document 10/02/20 09:47 [facility] (Rec: 10/02/20 10:30 [facility] [id number]) Physical Therapy Assessment Goals 4 Impairment postural dysfunction Fpc Goal (LTG) Patient to demonstrate improved postural awareness and postural alignment statically, and dynamically with functional activities LTG Duration 10/25/20 3 Impairment decreased weakness in core and poor core stabilization Short Term Goal (STG) Patient to be instructed in HEP to address impairments STG Duration 09/24/20 Fpc Goal (LTG) Patient to be independent and compliant with HEP and will demonstrate improved core strength to 5/5 and good core stabilization during functional activities LTG Duration 10/25/20 2 Impairment pain with sneezing and coughing Fpc Goal (LTG) Patient will be able to sneeze or cough without pain LTG Duration 10/25/20 1 Impairment back, pelvis, and hip pain with usual exercises Fpc Goal (LTG) Patient will be able to perform modified HEP routine and return to running with minimal to no pain LTG Duration 10/25/20 Assessment Summary Assessment Patient demonstrated improved postural alignment toward neutral statically and dynamically with function including when initially putting her jacket in high locker. Occasionally during session required reminders as she went into habitual posturing with posterior thorax and excess lordosis but more easily able to self- correct. Patient reported she has decided not to run at this time but continue to focus on core strengthening before trying again. Has started yoga with instructor Sundeep online as recommended by PT and was cautioned not to overdo and listen to her body. Physical Therapy Plan Frequency and Duration Frequency of Treatment 2x/Week Duration of Treatment 8 weeks Plan of Care Start Date 08/26/20 Plan of Care End Date 10/25/20 Therapeutic Interventions Therapeutic Interventions Home Exercise Program,Joint Mobilizations,Manual Therapy, Neuromuscular Re-education, Patient/Caregiver Education, Self-Care/Home Management,Soft Tissue Mobilization,Taping, Therapeutic Activities, Therapeutic Exercises Modalities Hot Packs,Traction- Mechanical ,Ultrasound Next Visit Focus/Plan Next Note Type Treatment Note Next Visit Plan review bridging including single leg, planks, trial treadmill on incline, progress squats to using weight if naresh , lift instruction without weight.
--- NOTE | 2020-10-09 17:11 | PT.OTN ---
Current Diagnoses Low back pain (10/09/20) Abnormal posture (10/09/20) Weakness (10/09/20) Physical Therapy Treatment Note PT-OP-A Visit Information Start: 08/26/20 08:45 Freq: Status: Active Protocol: Document 10/09/20 09:47 SAK (Rec: 10/09/20 11:12 SAK [id number]) Out-Patient Physical Therapy Visit Information Visit Information Visit Type Treatment Note Visit Start Time 09:47 Visit Stop Time 10:47 Total Visit Minutes 60 Visit Number 5 Evaluation Information Evaluation Date 08/26/20 PT-OP-B Current Condition Start: 08/26/20 08:45 Freq: Status: Active Protocol: Document 08/28/20 08:13 SAK (Rec: 08/28/20 09:10 SAK [id number]) Current Condition History of Current Condition Onset Date 8 years Current Complaints function-limiting LBP, posterior hip pain History of Current Condition pain comes and goes, no known cause. Worse with any lower body exercises, nagging pain, worst when flexed at trunk. Rarely tingling right foot. First noticed when she did lifts. Likes to run 3-5 miles per day but this currently causes pain. Tries to do core exercises but pain stopped her recently with double leg lift. One of most painful things is coughing and sneezing. Also c/o pain when she bends forward to spanish moss picker her dog. Prior Treatments and Tests x-ray: arthritis L5S1 Heat helpful, allergic to cold PT-OP-C Subjective Start: 08/26/20 08:45 Freq: Status: Active Protocol: Document 09/25/20 08:16 SAK (Rec: 09/25/20 09:05 SAK [id number]) OP-PT Subjective Patient Comments Patient Comments Feels she is doing her exercises better,trying to focus on not hyperextending, some less pain, has been able to run a little but reports still has pain after. PT-OP-F Manual Assessment Start: 08/26/20 08:45 Freq: Status: Active Protocol: Document 08/26/20 08:56 SAK (Rec: 08/26/20 11:11 SAK [id number]) Manual Assessments Soft Tissue Assessment Soft Tissue Mobility Assessment decreased STM right piriformis Joint Mobility Assessment Joint Mobility Assessment decreased AP mobility lumbar spine PT-OP-G Mobility & Gait Start: 08/26/20 08:45 Freq: Status: Active Protocol: Document 08/26/20 08:56 [facility] (Rec: 08/26/20 11:11 [facility] [id number]) OP Mobility Evaluation Functional Movements Lifting and Carrying painful Squats painful OP Gait Assessment Gait Gait Assistance Required: Independent Assistive Devices Assistive Device None PT-OP-H Neuro Start: 08/26/20 08:45 Freq: Status: Active Protocol: Document 08/26/20 08:56 [facility] (Rec: 08/26/20 11:11 [facility] [id number]) Sensation Evaluation Gross Sensation Gross Sensation WNL Comments Summary Comments occasional tingling into right foot PT-OP-L Special Tests Start: 08/26/20 08:45 Freq: Status: Active Protocol: Document 08/26/20 08:56 [facility] (Rec: 08/26/20 11:11 [facility] [id number]) Special Tests Lumbar Spine Special Tests Stork Test Test Results increased movement right Straight Leg Raise Test Results negative gregorio Manual Traction Test Results positive decrease in pain PT-OP-M Strength Start: 08/26/20 08:45 Freq: Status: Active Protocol: Document 08/26/20 08:56 [facility] (Rec: 08/26/20 11:11 [facility] [id number]) Trunk Strength Trunk Manual Muscle Testing Testing Position Supine Flexion 4- Good- Extension 4- Good- Core Stabilization poor in sitting, fair supine Comments painful Hip Strength Hip Manual Muscle Testing Right Flexion (L2) 4- Good- Extension (S1) 4- Good- Abduction 4+ Good+ External Rotation 4- Good- Internal Rotation 4+ Good+ Left Flexion (L2) 4 Good Extension (S1) 4- Good- Abduction 4+ Good+ External Rotation 4- Good- Internal Rotation 4+ Good+ Knee Strength Knee Manual Muscle Testing gregorio Flexion (S2) 5 Normal Extension (L3) 5 Normal Ankle/Foot Strength Ankle and Foot Manual Muscle Testing gregorio Dorsiflexion (L4) 5 Normal Plantarflexion (S1) 5 Normal Toe Strength Toe Manual Muscle Testing Great Toe Extension 5 Normal Comments gregorio PT-OP-Q Treatments Start: 08/26/20 08:45 Freq: Status: Active Protocol: Document 10/09/20 09:47 SAK (Rec: 10/09/20 17:10 [facility] [id number]) Cardio Equipment Treadmill Duration (Minutes) 8 Speed 4.0 Incline 0-4 Other cues for decreased stride length, midfoot landing, neutral core Therapeutic Exercises Sitting Exercises trunk rotation Equipment Used therapy ball, L1 TB Comments START NEXT SESSION Standing Exercises single leg lift Resistance yardstick Reps/Minutes 4x ea lift Standing Exercise Name partial Resistance 0 Equipment Used yarstick for postural reference Reps/Minutes 10x resisted hip Standing Exercise Name ab/ad/flex/ext Side bilateral Resistance L1 TB Equipment Used pole for UE support Reps/Minutes 5x ea squats Standing Exercise Name working toward lift Resistance 6# Equipment Used yardstick for postural alignment Reps/Minutes 10x Comments emphasis on gluteal activation , no lumbar hyperextension Other Exercises downward dog Reps/Minutes 2x Comments verbal and manual cues quadriped UE/LE lift Reps/Minutes 10x Comments verbal and manual cues for technique and alignment Self-Care/Home Management Treatment Education Patient Education Body Mechanics,Posture Other Education body mechanics with sweeping, vacuuming, yardwork listen to her body with yoga, don't jam into poses PT-OP-R Modalities Start: 08/26/20 08:45 Freq: Status: Active Protocol: Document 10/09/20 09:47 SAK (Rec: 10/09/20 11:12 SAK [id number]) Hot Pack/Cold Pack Treatment Hot Pack Location lumbar spine, posterior hips Patient Position Hooklying Treatment Duration (minutes) 15 Patient Tolerance Good PT-OP-T Assessment and Plan Start: 08/26/20 08:45 Freq: Status: Active Protocol: Document 10/09/20 09:47 SAK (Rec: 10/09/20 11:12 SAK [id number]) Physical Therapy Assessment Goals 4 Impairment postural dysfunction Halfway Goal (LTG) Patient to demonstrate improved postural awareness and postural alignment statically, and dynamically with functional activities LTG Duration 10/25/20 3 Impairment decreased weakness in core and poor core stabilization Short Term Goal (STG) Patient to be instructed in HEP to address impairments STG Duration 09/24/20 Halfway Goal (LTG) Patient to be independent and compliant with HEP and will demonstrate improved core strength to 5/5 and good core stabilization during functional activities LTG Duration 10/25/20 2 Impairment pain with sneezing and coughing Halfway Goal (LTG) Patient will be able to sneeze or cough without pain LTG Duration 10/25/20 1 Impairment back, pelvis, and hip pain with usual exercises Halfway Goal (LTG) Patient will be able to perform modified HEP routine and return to running with minimal to no pain LTG Duration 10/25/20 Assessment Summary Assessment Trial gait and jogging on treadmill today with trial modifications of decreased step length, more midfoot landing vs strong heelstrike with some improvement of back and hip pain; demonstrated good understanding of concepts and will continue to try in small amounts. Added single leg lift which was difficult but not painful for her. She continues to work on postural alignment and core stabilization with all activities and was iinstructed in proper body mechanics for household tasks such as cleaning as well as gardening. Use of yardstick for alignment reference Physical Therapy Plan Frequency and Duration Frequency of Treatment 2x/Week Duration of Treatment 8 weeks Plan of Care Start Date 08/26/20 Plan of Care End Date 10/25/20 Therapeutic Interventions Therapeutic Interventions Home Exercise Program,Joint Mobilizations,Manual Therapy, Neuromuscular Re-education, Patient/Caregiver Education, Self-Care/Home Management,Soft Tissue Mobilization,Taping, Therapeutic Activities, Therapeutic Exercises Modalities Hot Packs,Traction- Mechanical ,Ultrasound
--- NOTE | 2020-10-22 15:09 | PT.OTN ---
Current Diagnoses Low back pain (10/22/20) Abnormal posture (10/22/20) Weakness (10/22/20) Physical Therapy Treatment Note PT-OP-A Visit Information Start: 08/26/20 08:45 Freq: Status: Active Protocol: Document 10/22/20 08:10 SAK (Rec: 10/22/20 09:09 SAK [id number]) Out-Patient Physical Therapy Visit Information Visit Information Visit Type Treatment Note Visit Start Time 08:15 Visit Stop Time 09:15 Total Visit Minutes 60 Visit Number 6 Evaluation Information Evaluation Date 08/26/20 PT-OP-B Current Condition Start: 08/26/20 08:45 Freq: Status: Active Protocol: Document 08/28/20 08:13 SAK (Rec: 08/28/20 09:10 SAK [id number]) Current Condition History of Current Condition Onset Date 8 years Current Complaints function-limiting LBP, posterior hip pain History of Current Condition pain comes and goes, no known cause. Worse with any lower body exercises, nagging pain, worst when flexed at trunk. Rarely tingling right foot. First noticed when she did lifts. Likes to run 3-5 miles per day but this currently causes pain. Tries to do core exercises but pain stopped her recently with double leg lift. One of most painful things is coughing and sneezing. Also c/o pain when she bends forward to order picker her dog. Prior Treatments and Tests x-ray: arthritis L5S1 Heat helpful, allergic to cold PT-OP-C Subjective Start: 08/26/20 08:45 Freq: Status: Active Protocol: Document 09/25/20 08:16 SAK (Rec: 09/25/20 09:05 SAK [id number]) OP-PT Subjective Patient Comments Patient Comments Feels she is doing her exercises better,trying to focus on not hyperextending, some less pain, has been able to run a little but reports still has pain after. PT-OP-F Manual Assessment Start: 08/26/20 08:45 Freq: Status: Active Protocol: Document 08/26/20 08:56 SAK (Rec: 08/26/20 11:11 SAK [id number]) Manual Assessments Soft Tissue Assessment Soft Tissue Mobility Assessment decreased STM right piriformis Joint Mobility Assessment Joint Mobility Assessment decreased AP mobility lumbar spine PT-OP-G Mobility & Gait Start: 08/26/20 08:45 Freq: Status: Active Protocol: Document 08/26/20 08:56 [facility] (Rec: 08/26/20 11:11 [facility] [id number]) OP Mobility Evaluation Functional Movements Lifting and Carrying painful Squats painful OP Gait Assessment Gait Gait Assistance Required: Independent Assistive Devices Assistive Device None PT-OP-H Neuro Start: 08/26/20 08:45 Freq: Status: Active Protocol: Document 08/26/20 08:56 [facility] (Rec: 08/26/20 11:11 [facility] [id number]) Sensation Evaluation Gross Sensation Gross Sensation WNL Comments Summary Comments occasional tingling into right foot PT-OP-L Special Tests Start: 08/26/20 08:45 Freq: Status: Active Protocol: Document 08/26/20 08:56 [facility] (Rec: 08/26/20 11:11 [facility] [id number]) Special Tests Lumbar Spine Special Tests Stork Test Test Results increased movement right Straight Leg Raise Test Results negative gregorio Manual Traction Test Results positive decrease in pain PT-OP-M Strength Start: 08/26/20 08:45 Freq: Status: Active Protocol: Document 08/26/20 08:56 [facility] (Rec: 08/26/20 11:11 [facility] [id number]) Trunk Strength Trunk Manual Muscle Testing Testing Position Supine Flexion 4- Good- Extension 4- Good- Core Stabilization poor in sitting, fair supine Comments painful Hip Strength Hip Manual Muscle Testing Right Flexion (L2) 4- Good- Extension (S1) 4- Good- Abduction 4+ Good+ External Rotation 4- Good- Internal Rotation 4+ Good+ Left Flexion (L2) 4 Good Extension (S1) 4- Good- Abduction 4+ Good+ External Rotation 4- Good- Internal Rotation 4+ Good+ Knee Strength Knee Manual Muscle Testing gregorio Flexion (S2) 5 Normal Extension (L3) 5 Normal Ankle/Foot Strength Ankle and Foot Manual Muscle Testing gregorio Dorsiflexion (L4) 5 Normal Plantarflexion (S1) 5 Normal Toe Strength Toe Manual Muscle Testing Great Toe Extension 5 Normal Comments gregorio PT-OP-Q Treatments Start: 08/26/20 08:45 Freq: Status: Active Protocol: Document 10/22/20 08:10 SAK (Rec: 10/22/20 09:09 [facility] [id number]) Therapeutic Exercises Supine Exercises groin Reps/Minutes 2x Comments strap IT band Supine Exercise Name stretch Reps/Minutes 2x Comments strap hamstring stretch Reps/Minutes 2x Comments strap bridge Reps/Minutes 10x, Comments single leg Prone Exercises plank Prone Exercise Name with leg left Reps/Minutes 10x Sidelying Exercises side planks Sidelying Exercise Name added leg lift Reps/Minutes 5x Standing Exercises bent elbow arm swing Resistance l1 tb Reps/Minutes 10X trunk rotation Resistance L1 TB Reps/Minutes 10x isometric TB push Equipment Used L1 Tb Reps/Minutes 10x single leg squat Reps/Minutes 10x Comments cues for hip anita, knee behind toes squats Standing Exercise Name working toward lift Resistance 12# Equipment Used yardstick for postural alignment Reps/Minutes 10x Comments emphasis on gluteal activation , no lumbar hyperextension wall posture Reps/Minutes 10x Comments including roll-ups and UE's overhead Other Exercises crawl plank Reps/Minutes 10x5 Comments knee lift in quadriped Self-Care/Home Management Treatment Education Patient Education Body Mechanics,Posture Other Education correct foostrike; less heel, more midfoot, center of mass over foot postural correction PT-OP-R Modalities Start: 08/26/20 08:45 Freq: Status: Active Protocol: Document 10/09/20 09:47 [facility]AK (Rec: 10/09/20 11:12 SAK [id number]) Hot Pack/Cold Pack Treatment Hot Pack Location lumbar spine, posterior hips Patient Position Hooklying Treatment Duration (minutes) 15 Patient Tolerance Good PT-OP-T Assessment and Plan Start: 08/26/20 08:45 Freq: Status: Active Protocol: Document 10/22/20 08:10 [facility]AK (Rec: 10/22/20 09:09 SAK [id number]) Physical Therapy Assessment Goals 4 Impairment postural dysfunction Senior Care Goal (LTG) Patient to demonstrate improved postural awareness and postural alignment statically, and dynamically with functional activities LTG Duration 10/25/20 3 Impairment decreased weakness in core and poor core stabilization Short Term Goal (STG) Patient to be instructed in HEP to address impairments STG Duration 09/24/20 [employer] Goal (LTG) Patient to be independent and compliant with HEP and will demonstrate improved core strength to 5/5 and good core stabilization during functional activities LTG Duration 10/25/20 2 Impairment pain with sneezing and coughing [employer] Goal (LTG) Patient will be able to sneeze or cough without pain LTG Duration 10/25/20 1 Impairment back, pelvis, and hip pain with usual exercises Senior Care Goal (LTG) Patient will be able to perform modified HEP routine and return to running with minimal to no pain LTG Duration 10/25/20 Progress Towards Goals Progress Towards Goals Progressing Toward Goals Assessment Summary Assessment Patient tolerated new exercises and progression of previous exercises well without c/o pain. She needed moderate cues for correction of her habitual posture most frequently when in between exercises when she relaxes into excess lumbar extension. Not able to try running due to inappropriate footwear but patient to try gently on own; encouraged to try on high [employer] track for softer surface. Physical Therapy Plan Frequency and Duration Frequency of Treatment 2x/Week Duration of Treatment 8 weeks Plan of Care Start Date 08/26/20 Plan of Care End Date 10/25/20 Therapeutic Interventions Therapeutic Interventions Home Exercise Program,Joint Mobilizations,Manual Therapy, Neuromuscular Re-education, Patient/Caregiver Education, Self-Care/Home Management,Soft Tissue Mobilization,Taping, Therapeutic Activities, Therapeutic Exercises Modalities Hot Packs,Traction- Mechanical ,Ultrasound Next Visit Focus/Plan Next Note Type Treatment Note Next Visit Plan assess response to resumption of running, problem solve as indicated. Continue progression of ther ex with form correction as indicated.
--- NOTE | 2020-10-29 12:18 | PT.OTN ---
Current Diagnoses Low back pain (10/29/20) Abnormal posture (10/29/20) Weakness (10/29/20) Physical Therapy Treatment Note PT-OP-A Visit Information Start: 08/26/20 08:45 Freq: Status: Active Protocol: Document 10/29/20 08:12 SAK (Rec: 10/29/20 09:00 SAK [id number]) Out-Patient Physical Therapy Visit Information Visit Information Visit Type Treatment Note Visit Start Time 08:15 Visit Stop Time 09:00 Total Visit Minutes 45 Visit Number 7 PT-OP-B Current Condition Start: 08/26/20 08:45 Freq: Status: Active Protocol: Document 08/28/20 08:13 SAK (Rec: 08/28/20 09:10 SAK [id number]) Current Condition History of Current Condition Onset Date 8 years Current Complaints function-limiting LBP, posterior hip pain History of Current Condition pain comes and goes, no known cause. Worse with any lower body exercises, nagging pain, worst when flexed at trunk. Rarely tingling right foot. First noticed when she did lifts. Likes to run 3-5 miles per day but this currently causes pain. Tries to do core exercises but pain stopped her recently with double leg lift. One of most painful things is coughing and sneezing. Also c/o pain when she bends forward to parts picker her dog. Prior Treatments and Tests x-ray: arthritis L5S1 Heat helpful, allergic to cold PT-OP-C Subjective Start: 08/26/20 08:45 Freq: Status: Active Protocol: Document 10/29/20 08:12 SAK (Rec: 10/29/20 09:00 SAK [id number]) OP-PT Subjective Patient Comments Patient Comments Ran 1x since last seen for 25 min, focused on core, shorter stride, and decreased core rotation with straighter arm swing. Was also able to jump rope yesterday. Was able to do single leg squat with 5#. States not having pain in AM anymore. PT-OP-F Manual Assessment Start: 08/26/20 08:45 Freq: Status: Active Protocol: Document 08/26/20 08:56 SAK (Rec: 08/26/20 11:11 SAK [id number]) Manual Assessments Soft Tissue Assessment Soft Tissue Mobility Assessment decreased STM right piriformis Joint Mobility Assessment Joint Mobility Assessment decreased AP mobility lumbar spine PT-OP-G Mobility & Gait Start: 08/26/20 08:45 Freq: Status: Active Protocol: Document 08/26/20 08:56 [facility] (Rec: 08/26/20 11:11 [facility] [id number]) OP Mobility Evaluation Functional Movements Lifting and Carrying painful Squats painful OP Gait Assessment Gait Gait Assistance Required: Independent Assistive Devices Assistive Device None PT-OP-H Neuro Start: 08/26/20 08:45 Freq: Status: Active Protocol: Document 08/26/20 08:56 [facility] (Rec: 08/26/20 11:11 [facility] [id number]) Sensation Evaluation Gross Sensation Gross Sensation WNL Comments Summary Comments occasional tingling into right foot PT-OP-L Special Tests Start: 08/26/20 08:45 Freq: Status: Active Protocol: Document 08/26/20 08:56 [facility] (Rec: 08/26/20 11:11 [facility] [id number]) Special Tests Lumbar Spine Special Tests Stork Test Test Results increased movement right Straight Leg Raise Test Results negative gregorio Manual Traction Test Results positive decrease in pain PT-OP-M Strength Start: 08/26/20 08:45 Freq: Status: Active Protocol: Document 08/26/20 08:56 [facility] (Rec: 08/26/20 11:11 [facility] [id number]) Trunk Strength Trunk Manual Muscle Testing Testing Position Supine Flexion 4- Good- Extension 4- Good- Core Stabilization poor in sitting, fair supine Comments painful Hip Strength Hip Manual Muscle Testing Right Flexion (L2) 4- Good- Extension (S1) 4- Good- Abduction 4+ Good+ External Rotation 4- Good- Internal Rotation 4+ Good+ Left Flexion (L2) 4 Good Extension (S1) 4- Good- Abduction 4+ Good+ External Rotation 4- Good- Internal Rotation 4+ Good+ Knee Strength Knee Manual Muscle Testing gregorio Flexion (S2) 5 Normal Extension (L3) 5 Normal Ankle/Foot Strength Ankle and Foot Manual Muscle Testing gregorio Dorsiflexion (L4) 5 Normal Plantarflexion (S1) 5 Normal Toe Strength Toe Manual Muscle Testing Great Toe Extension 5 Normal Comments gregorio PT-OP-Q Treatments Start: 08/26/20 08:45 Freq: Status: Active Protocol: Document 10/29/20 08:12 SAK (Rec: 10/29/20 09:00 SAK [id number]) Cardio Equipment Recumbent Elliptical (Biodex) Duration (Minutes) 7 Resistance 1 Other focus on core Therapeutic Exercises Supine Exercises supine 1/2 roll core Reps/Minutes 10 min Comments gregorio and unil arm and leg lifts bridge Reps/Minutes 10x, Comments legs on foam roller Prone Exercises push ups Reps/Minutes 10x Comments cues for abdominal tuck plank Reps/Minutes 10x Standing Exercises trunk rotation Resistance L1 TB Reps/Minutes 10x isometric TB push Equipment Used L1 Tb Reps/Minutes 10x Other Exercises quadriped UE/LE lift Reps/Minutes 10x Comments verbal and manual cues for technique and alignment, with side leg and UE ll Self-Care/Home Management Treatment Education Patient Education Body Mechanics,Home Exercise Program,Posture Activities Self-Care/Home Management Activities increased challenge to current HEP PT-OP-R Modalities Start: 08/26/20 08:45 Freq: Status: Active Protocol: Document 10/09/20 09:47 SAK (Rec: 10/09/20 11:12 SAK [id number]) Hot Pack/Cold Pack Treatment Hot Pack Location lumbar spine, posterior hips Patient Position Hooklying Treatment Duration (minutes) 15 Patient Tolerance Good PT-OP-T Assessment and Plan Start: 08/26/20 08:45 Freq: Status: Active Protocol: Document 10/29/20 08:12 SAK (Rec: 10/29/20 09:00 SAK [id number]) Physical Therapy Assessment Goals 4 Impairment postural dysfunction Retread Operator Goal (LTG) Patient to demonstrate improved postural awareness and postural alignment statically, and dynamically with functional activities LTG Duration 10/25/20 3 Impairment decreased weakness in core and poor core stabilization Short Term Goal (STG) Patient to be instructed in HEP to address impairments STG Duration 09/24/20 Alf Goal (LTG) Patient to be independent and compliant with HEP and will demonstrate improved core strength to 5/5 and good core stabilization during functional activities LTG Duration 10/25/20 2 Impairment pain with sneezing and coughing Retread Operator Goal (LTG) Patient will be able to sneeze or cough without pain LTG Duration 10/25/20 1 Impairment back, pelvis, and hip pain with usual exercises Retread Operator Goal (LTG) Patient will be able to perform modified HEP routine and return to running with minimal to no pain LTG Duration 10/25/20 Progress Towards Goals Progress Towards Goals Progressing Toward Goals Assessment Summary Assessment No pain with any exercises except trial bridge with LE's on therapy ball, able to tolerate with feet on foam roller. Less frequent cues for postural correction. Able to add push-ups but with fatigue has increased lumbar extension. Progression of most ther ex today with transition to L3 TB (issued some for home use). Added supine core ex on 1/2 roll with UE and LE movemnt. No heat needed. Physical Therapy Plan Frequency and Duration Frequency of Treatment 2x/Week Duration of Treatment 8 weeks Plan of Care Start Date 08/26/20 Plan of Care End Date 10/25/20 Therapeutic Interventions Therapeutic Interventions Home Exercise Program,Joint Mobilizations,Manual Therapy, Neuromuscular Re-education, Patient/Caregiver Education, Self-Care/Home Management,Soft Tissue Mobilization,Taping, Therapeutic Activities, Therapeutic Exercises Modalities Hot Packs,Traction- Mechanical ,Ultrasound Next Visit Focus/Plan Next Note Type Treatment Note Next Visit Plan Progress core exercises as patient transitions into more running.
--- NOTE | 2020-10-29 16:00 | PT.OTRE ---
Current Diagnoses Low back pain (11/12/20) Abnormal posture (11/12/20) Weakness (11/12/20) Past Medical History (Last Updated 11/12/20 @ 14:59 by BAKARI Noriega) Exercise-induced asthma GERD (gastroesophageal reflux disease) Low back pain Visit Care Team Role Provider Type Jer Yanez DO Attending Provider Physician Primary Care Provider Referring Provider Specialty: [facility] Address: [address] [place] [address], [facility] Email: [email or web address] Physical Therapy Re-Evaluation PT-OP-A Visit Information Start: 08/26/20 08:45 Freq: Status: Active Protocol: Document 11/12/20 08:19 SAK (Rec: 11/12/20 09:01 SAK [id number]) Out-Patient Physical Therapy Visit Information Visit Information Visit Type Treatment Note Visit Start Time 08:15 Visit Stop Time 09:00 Total Visit Minutes 45 Visit Number 9 PT-OP-B Current Condition Start: 08/26/20 08:45 Freq: Status: Active Protocol: Document 08/28/20 08:13 SAK (Rec: 08/28/20 09:10 SAK [id number]) Current Condition History of Current Condition Onset Date 8 years Current Complaints function-limiting LBP, posterior hip pain History of Current Condition pain comes and goes, no known cause. Worse with any lower body exercises, nagging pain, worst when flexed at trunk. Rarely tingling right foot. First noticed when she did lifts. Likes to run 3-5 miles per day but this currently causes pain. Tries to do core exercises but pain stopped her recently with double leg lift. One of most painful things is coughing and sneezing. Also c/o pain when she bends forward to greens picker her dog. Prior Treatments and Tests x-ray: arthritis L5S1 Heat helpful, allergic to cold PT-OP-C Subjective Start: 08/26/20 08:45 Freq: Status: Active Protocol: Document 11/12/20 08:19 SAK (Rec: 11/12/20 09:01 SAK [id number]) OP-PT Subjective Patient Comments Patient Comments Went for 3 mile run without difficulty. Went for a bike ride 3 miles yesterday felt some low back tightness toward the end. Able to do single leg bridges with 10 lbs and single leg lift with 10 lbs PT-OP-F Manual Assessment Start: 08/26/20 08:45 Freq: Status: Active Protocol: Document 08/26/20 08:56 [facility] (Rec: 08/26/20 11:11 [facility] [id number]) Manual Assessments Soft Tissue Assessment Soft Tissue Mobility Assessment decreased STM right piriformis Joint Mobility Assessment Joint Mobility Assessment decreased AP mobility lumbar spine PT-OP-G Mobility & Gait Start: 08/26/20 08:45 Freq: Status: Active Protocol: Document 08/26/20 08:56 [facility] (Rec: 08/26/20 11:11 [facility] [id number]) OP Mobility Evaluation Functional Movements Lifting and Carrying painful Squats painful OP Gait Assessment Gait Gait Assistance Required: Independent Assistive Devices Assistive Device None PT-OP-H Neuro Start: 08/26/20 08:45 Freq: Status: Active Protocol: Document 08/26/20 08:56 [facility] (Rec: 08/26/20 11:11 [facility] [id number]) Sensation Evaluation Gross Sensation Gross Sensation WNL Comments Summary Comments occasional tingling into right foot PT-OP-L Special Tests Start: 08/26/20 08:45 Freq: Status: Active Protocol: Document 08/26/20 08:56 [facility] (Rec: 08/26/20 11:11 [facility] [id number]) Special Tests Lumbar Spine Special Tests Stork Test Test Results increased movement right Straight Leg Raise Test Results negative gregorio Manual Traction Test Results positive decrease in pain PT-OP-M Strength Start: 08/26/20 08:45 Freq: Status: Active Protocol: Document 08/26/20 08:56 [facility] (Rec: 08/26/20 11:11 [facility] [id number]) Trunk Strength Trunk Manual Muscle Testing Testing Position Supine Flexion 4- Good- Extension 4- Good- Core Stabilization poor in sitting, fair supine Comments painful Hip Strength Hip Manual Muscle Testing Right Flexion (L2) 4- Good- Extension (S1) 4- Good- Abduction 4+ Good+ External Rotation 4- Good- Internal Rotation 4+ Good+ Left Flexion (L2) 4 Good Extension (S1) 4- Good- Abduction 4+ Good+ External Rotation 4- Good- Internal Rotation 4+ Good+ Knee Strength Knee Manual Muscle Testing gregorio Flexion (S2) 5 Normal Extension (L3) 5 Normal Ankle/Foot Strength Ankle and Foot Manual Muscle Testing gregorio Dorsiflexion (L4) 5 Normal Plantarflexion (S1) 5 Normal Toe Strength Toe Manual Muscle Testing Great Toe Extension 5 Normal Comments gregorio PT-OP-Q Treatments Start: 08/26/20 08:45 Freq: Status: Active Protocol: Document 11/12/20 08:19 [facility] (Rec: 11/12/20 09:01 [facility] [id number]) Therapeutic Exercises Standing Exercises hip flex Resistance 2#, 5# Reps/Minutes 10x2 wall posture Reps/Minutes 10x Comments including roll-ups and UE's arm angels PT-OP-R Modalities Start: 08/26/20 08:45 Freq: Status: Active Protocol: Document 11/05/20 08:14 [facility] (Rec: 11/05/20 14:06 [facility] [id number]) Hot Pack/Cold Pack Treatment Cold Pack Patient Position Hooklying Treatment Duration (minutes) 10 Comments 90/90 posistion PT-OP-T Assessment and Plan Start: 08/26/20 08:45 Freq: Status: Active Protocol: Document 11/12/20 08:19 [facility] (Rec: 11/12/20 09:01 [facility] [id number]) Physical Therapy Assessment Goals 4 Impairment postural dysfunction Alf Goal (LTG) Patient to demonstrate improved postural awareness and postural alignment statically, and dynamically with functional activities 10/29/20: good goal progress, with patient demonstrating good ability to correct posture, still with tendency toward excess lumbar spine extension, forward head, posterior thorax, but much improved. LTG Duration 12/29/20 3 Impairment decreased weakness in core and poor core stabilization Short Term Goal (STG) Patient to be instructed in HEP to address impairments 10/29/20: ongoing progression STG Duration goal met Informatics Nurse Goal (LTG) Patient to be independent and compliant with HEP and will demonstrate improved core strength to 5/5 and good core stabilization during functional activities 10/29/20: goal mostlymet LTG Duration 12/29/20 2 Impairment pain with sneezing and coughing Alf Goal (LTG) Patient will be able to sneeze or cough without pain 10/29/20: goal mostly met LTG Duration 12/29/20 1 Impairment back, pelvis, and hip pain with usual exercises Informatics Nurse Goal (LTG) Patient will be able to perform modified HEP routine and return to running with minimal to no pain 10/29/20: still some modifications to HEP, not yet back to usual distances running LTG Duration 12/29/20 Progress Towards Goals Progress Towards Goals Progressing Toward Goals Assessment Summary Assessment Excellent progress toward goals, highly compliant to HEP . Physical Therapy Plan Frequency and Duration Frequency of Treatment 1x/Week Duration of Treatment 8 weeks Plan of Care Start Date 10/29/20 Plan of Care End Date 12/29/20 Therapeutic Interventions Therapeutic Interventions Home Exercise Program,Joint Mobilizations,Manual Therapy, Neuromuscular Re-education, Patient/Caregiver Education, Self-Care/Home Management,Soft Tissue Mobilization,Taping, Therapeutic Activities, Therapeutic Exercises Modalities Hot Packs,Traction- Mechanical ,Ultrasound Next Visit Focus/Plan Next Note Type Treatment Note Next Visit Plan Follow-up appointment in 3 weeks
--- NOTE | 2020-10-29 16:00 | PT.OPPOC ---
Physical, Occupational & Speech Therapy At [facility] Current Diagnoses Low back pain (11/12/20) Abnormal posture (11/12/20) Weakness (11/12/20) Visit Care Team Role Provider Type Jer Yanez DO Attending Provider Physician Primary Care Provider Referring Provider Specialty: [facility] Address: [address] [place] [address], [facility] Email: [email or web address] Plan Of Care PT-OP-T Assessment and Plan Start: 08/26/20 08:45 Freq: Status: Active Protocol: Document 11/12/20 08:19 SAK (Rec: 11/12/20 09:01 SAK [id number]) Physical Therapy Assessment Goals 4 Impairment postural dysfunction Underground Utility Locator Goal (LTG) Patient to demonstrate improved postural awareness and postural alignment statically, and dynamically with functional activities 10/29/20: good goal progress, with patient demonstrating good ability to correct posture, still with tendency toward excess lumbar spine extension, forward head, posterior thorax, but much improved. LTG Duration 12/29/20 3 Impairment decreased weakness in core and poor core stabilization Short Term Goal (STG) Patient to be instructed in HEP to address impairments 10/29/20: ongoing progression STG Duration goal met Mcc Goal (LTG) Patient to be independent and compliant with HEP and will demonstrate improved core strength to 5/5 and good core stabilization during functional activities 10/29/20: goal mostlymet LTG Duration 12/29/20 2 Impairment pain with sneezing and coughing Mcc Goal (LTG) Patient will be able to sneeze or cough without pain 10/29/20: goal mostly met LTG Duration 12/29/20 1 Impairment back, pelvis, and hip pain with usual exercises Underground Utility Locator Goal (LTG) Patient will be able to perform modified HEP routine and return to running with minimal to no pain 10/29/20: still some modifications to HEP, not yet back to usual distances running LTG Duration 12/29/20 Progress Towards Goals Progress Towards Goals Progressing Toward Goals Assessment Summary Assessment Excellent progress toward goals, highly compliant to HEP . Physical Therapy Plan Frequency and Duration Frequency of Treatment 1x/Week Duration of Treatment 8 weeks Plan of Care Start Date 10/29/20 Plan of Care End Date 12/29/20 Therapeutic Interventions Therapeutic Interventions Home Exercise Program,Joint Mobilizations,Manual Therapy, Neuromuscular Re-education, Patient/Caregiver Education, Self-Care/Home Management,Soft Tissue Mobilization,Taping, Therapeutic Activities, Therapeutic Exercises Modalities Hot Packs,Traction- Mechanical ,Ultrasound Next Visit Focus/Plan Next Note Type Treatment Note Next Visit Plan Follow-up appointment in 3 weeks Plan of Care Dates Plan of Care Start Date 10/29/20 Plan of Care End Date 12/29/20 Electronically Signed by: Argelia Peck, PT 12/03/20 0809 Please Sign and Return: I have reviewed this Plan of Care and certify that the skilled therapy services above are required to meet the patient?s needs. Physician Signature Date Printed Name and Credentials Clinical Instructor Signature Printed Name and Credentials
--- NOTE | 2020-10-29 16:00 | PT.OPPOC ---
Physical, Occupational & Speech Therapy At Loc[facility] Current Diagnoses Low back pain (11/12/20) Abnormal posture (11/12/20) Weakness (11/12/20) Visit Care Team Role Provider Type Jer Yanez DO Attending Provider Physician Primary Care Provider Referring Provider Specialty: [facility] Address: [address] [place] [address], [facility] Email: [email or web address] Plan Of Care PT-OP-T Assessment and Plan Start: 08/26/20 08:45 Freq: Status: Active Protocol: Document 11/12/20 08:19 SAK (Rec: 11/12/20 09:01 SAK [id number]) Physical Therapy Assessment Goals 4 Impairment postural dysfunction Retail Support Manager Goal (LTG) Patient to demonstrate improved postural awareness and postural alignment statically, and dynamically with functional activities 10/29/20: good goal progress, with patient demonstrating good ability to correct posture, still with tendency toward excess lumbar spine extension, forward head, posterior thorax, but much improved. LTG Duration 12/29/20 3 Impairment decreased weakness in core and poor core stabilization Short Term Goal (STG) Patient to be instructed in HEP to address impairments 10/29/20: ongoing progression STG Duration goal met Fdc Goal (LTG) Patient to be independent and compliant with HEP and will demonstrate improved core strength to 5/5 and good core stabilization during functional activities 10/29/20: goal mostlymet LTG Duration 12/29/20 2 Impairment pain with sneezing and coughing Fdc Goal (LTG) Patient will be able to sneeze or cough without pain 10/29/20: goal mostly met LTG Duration 12/29/20 1 Impairment back, pelvis, and hip pain with usual exercises Retail Support Manager Goal (LTG) Patient will be able to perform modified HEP routine and return to running with minimal to no pain 10/29/20: still some modifications to HEP, not yet back to usual distances running LTG Duration 12/29/20 Progress Towards Goals Progress Towards Goals Progressing Toward Goals Assessment Summary Assessment Excellent progress toward goals, highly compliant to HEP . Physical Therapy Plan Frequency and Duration Frequency of Treatment 1x/Week Duration of Treatment 8 weeks Plan of Care Start Date 10/29/20 Plan of Care End Date 12/29/20 Therapeutic Interventions Therapeutic Interventions Home Exercise Program,Joint Mobilizations,Manual Therapy, Neuromuscular Re-education, Patient/Caregiver Education, Self-Care/Home Management,Soft Tissue Mobilization,Taping, Therapeutic Activities, Therapeutic Exercises Modalities Hot Packs,Traction- Mechanical ,Ultrasound Next Visit Focus/Plan Next Note Type Treatment Note Next Visit Plan Follow-up appointment in 3 weeks Plan of Care Dates Plan of Care Start Date 10/29/20 Plan of Care End Date 12/29/20 Electronically Signed by: Argelia Peck, PT 12/03/20 0812 Please Sign and Return: I have reviewed this Plan of Care and certify that the skilled therapy services above are required to meet the patient?s needs. Physician Signature Date Printed Name and Credentials Clinical Instructor Signature Printed Name and Credentials
--- NOTE | 2020-11-05 14:06 | PT.OTN ---
Current Diagnoses Low back pain (11/05/20) Abnormal posture (11/05/20) Weakness (11/05/20) Physical Therapy Treatment Note PT-OP-A Visit Information Start: 08/26/20 08:45 Freq: Status: Active Protocol: Document 11/05/20 08:14 SAK (Rec: 11/05/20 09:04 SAK [id number]) Out-Patient Physical Therapy Visit Information Visit Information Visit Type Treatment Note Visit Start Time 08:15 Visit Stop Time 09:00 Total Visit Minutes 45 Visit Number 8 PT-OP-B Current Condition Start: 08/26/20 08:45 Freq: Status: Active Protocol: Document 08/28/20 08:13 SAK (Rec: 08/28/20 09:10 SAK [id number]) Current Condition History of Current Condition Onset Date 8 years Current Complaints function-limiting LBP, posterior hip pain History of Current Condition pain comes and goes, no known cause. Worse with any lower body exercises, nagging pain, worst when flexed at trunk. Rarely tingling right foot. First noticed when she did lifts. Likes to run 3-5 miles per day but this currently causes pain. Tries to do core exercises but pain stopped her recently with double leg lift. One of most painful things is coughing and sneezing. 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 Prior Treatments and Tests x-ray: arthritis L5S1 Heat helpful, allergic to cold PT-OP-C Subjective Start: 08/26/20 08:45 Freq: Status: Active Protocol: Document 11/05/20 08:14 SAK (Rec: 11/05/20 09:04 SAK [id number]) OP-PT Subjective Patient Comments Patient Comments went for run 2 1/2 miles yesterday still taking it fairly slow, pain only with uneven ground on trails, went away quickly, no pain today. Some pain with lifts so backed off on weight. Stopped doing push-ups due to elbow pain. PT-OP-F Manual Assessment Start: 08/26/20 08:45 Freq: Status: Active Protocol: Document 08/26/20 08:56 SAK (Rec: 08/26/20 11:11 SAK [id number]) Manual Assessments Soft Tissue Assessment Soft Tissue Mobility Assessment decreased STM right piriformis Joint Mobility Assessment Joint Mobility Assessment decreased AP mobility lumbar spine PT-OP-G Mobility & Gait Start: 08/26/20 08:45 Freq: Status: Active Protocol: Document 08/26/20 08:56 [facility] (Rec: 08/26/20 11:11 [facility] [id number]) OP Mobility Evaluation Functional Movements Lifting and Carrying painful Squats painful OP Gait Assessment Gait Gait Assistance Required: Independent Assistive Devices Assistive Device None PT-OP-H Neuro Start: 08/26/20 08:45 Freq: Status: Active Protocol: Document 08/26/20 08:56 [facility] (Rec: 08/26/20 11:11 [facility] [id number]) Sensation Evaluation Gross Sensation Gross Sensation WNL Comments Summary Comments occasional tingling into right foot PT-OP-L Special Tests Start: 08/26/20 08:45 Freq: Status: Active Protocol: Document 08/26/20 08:56 [facility] (Rec: 08/26/20 11:11 [facility] [id number]) Special Tests Lumbar Spine Special Tests Stork Test Test Results increased movement right Straight Leg Raise Test Results negative gregorio Manual Traction Test Results positive decrease in pain PT-OP-M Strength Start: 08/26/20 08:45 Freq: Status: Active Protocol: Document 08/26/20 08:56 [facility] (Rec: 08/26/20 11:11 [facility] [id number]) Trunk Strength Trunk Manual Muscle Testing Testing Position Supine Flexion 4- Good- Extension 4- Good- Core Stabilization poor in sitting, fair supine Comments painful Hip Strength Hip Manual Muscle Testing Right Flexion (L2) 4- Good- Extension (S1) 4- Good- Abduction 4+ Good+ External Rotation 4- Good- Internal Rotation 4+ Good+ Left Flexion (L2) 4 Good Extension (S1) 4- Good- Abduction 4+ Good+ External Rotation 4- Good- Internal Rotation 4+ Good+ Knee Strength Knee Manual Muscle Testing gregorio Flexion (S2) 5 Normal Extension (L3) 5 Normal Ankle/Foot Strength Ankle and Foot Manual Muscle Testing gregorio Dorsiflexion (L4) 5 Normal Plantarflexion (S1) 5 Normal Toe Strength Toe Manual Muscle Testing Great Toe Extension 5 Normal Comments gregorio PT-OP-Q Treatments Start: 08/26/20 08:45 Freq: Status: Active Protocol: Document 11/05/20 08:14 SAK (Rec: 11/05/20 09:04 [facility] [id number]) Gym Equipment Shuttle Recovery Unilateral Squats Resistance 50 Shuttle Recovery Platform Stable Reps/Time 10x2 Bilateral Squats Resistance 100 Shuttle Recovery Platform Stable Reps/Time 10x2 Shuttle Balance chains red Details bal side to side EO and EC, staggered feet fwd/bck balanace Reps/Duration 6 min Comments emphais on core activation, neutral spine added SLS fwd/bck and side to side Sport Cord 1 Exercise Details forward walk, end-range slow march Cord/Resistance red Reps/Duration 8x Therapeutic Exercises Standing Exercises Body blade Standing Exercise Name fwd/bck, IR/ER both with elbows bent 90 Reps/Minutes 30 sec ea gregorio Comments small body blade trunk rotation Resistance L2 TB Reps/Minutes 10x2 single leg lift Resistance 5#, 7# Reps/Minutes 10x, 10x Comments cues for level pelvis eliminated pain PT-OP-R Modalities Start: 08/26/20 08:45 Freq: Status: Active Protocol: Document 11/05/20 08:14 VIVIAN (Rec: 11/05/20 14:06 [facility] [id number]) Hot Pack/Cold Pack Treatment Cold Pack Patient Position Hooklying Treatment Duration (minutes) 10 Comments 90/90 posistion PT-OP-T Assessment and Plan Start: 08/26/20 08:45 Freq: Status: Active Protocol: Document 11/05/20 08:14 VIVIAN (Rec: 11/05/20 09:04 [facility] [id number]) Physical Therapy Assessment Goals 4 Impairment postural dysfunction Insole Cementer Goal (LTG) Patient to demonstrate improved postural awareness and postural alignment statically, and dynamically with functional activities LTG Duration 10/25/20 3 Impairment decreased weakness in core and poor core stabilization Short Term Goal (STG) Patient to be instructed in HEP to address impairments STG Duration 09/24/20 Long-Term Goal (LTG) Patient to be independent and compliant with HEP and will demonstrate improved core strength to 5/5 and good core stabilization during functional activities LTG Duration 10/25/20 2 Impairment pain with sneezing and coughing Long-Term Goal (LTG) Patient will be able to sneeze or cough without pain LTG Duration 10/25/20 1 Impairment back, pelvis, and hip pain with usual exercises Long-Term Goal (LTG) Patient will be able to perform modified HEP routine and return to running with minimal to no pain LTG Duration 10/25/20 Progress Towards Goals Progress Towards Goals Progressing Toward Goals Assessment Summary Assessment Good functional progress with return to some running, with patient noting ability to decrease/eliminate pain with all activities if focuses on activating core properly. Improving postural awareness though still occasional cues for correction especially when not focused on exercise; patient notes decrease in pain with correction. Trial ice today especially as educated to ice after running to decrease post- exercise pain and soreness. Good progress. Has 1 further appointment scheduled then anticipate follow-up appointment approximately 3 weeks after that to assure continued progress. Physical Therapy Plan Next Visit Focus/Plan Next Note Type Treatment Note Next Visit Plan Continue to progress core exercises as patient transitions into more running.
--- NOTE | 2020-12-03 16:31 | PT.OTN ---
Current Diagnoses Low back pain (12/03/20) Abnormal posture (12/03/20) Weakness (12/03/20) Physical Therapy Treatment Note PT-OP-A Visit Information Start: 08/26/20 08:45 Freq: Status: Active Protocol: Document 12/03/20 08:14 SAK (Rec: 12/03/20 08:58 SAK [id number]) Out-Patient Physical Therapy Visit Information Visit Information Visit Type Treatment Note Visit Start Time 08:15 Visit Stop Time 09:00 Total Visit Minutes 45 Visit Number 10 PT-OP-B Current Condition Start: 08/26/20 08:45 Freq: Status: Active Protocol: Document 08/28/20 08:13 SAK (Rec: 08/28/20 09:10 SAK [id number]) Current Condition History of Current Condition Onset Date 8 years Current Complaints function-limiting LBP, posterior hip pain History of Current Condition pain comes and goes, no known cause. Worse with any lower body exercises, nagging pain, worst when flexed at trunk. Rarely tingling right foot. First noticed when she did lifts. Likes to run 3-5 miles per day but this currently causes pain. Tries to do core exercises but pain stopped her recently with double leg lift. One of most painful things is coughing and sneezing. 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 Prior Treatments and Tests x-ray: arthritis L5S1 Heat helpful, allergic to cold PT-OP-C Subjective Start: 08/26/20 08:45 Freq: Status: Active Protocol: Document 12/03/20 08:14 SAK (Rec: 12/03/20 08:58 SAK [id number]) OP-PT Subjective Patient Comments Patient Comments More pain today after possibly too much hip hinging exercises as well as carrying heavy bags of soil while gardening, mostly right hip. Doing weights day, running day, yoga day. Running 2-3 miles at a time, about 30 min at a time. States overall feels much better, confident she can do her exercise routines with good form. Demonstrates good understanding after education today of better body mechanics for doing gardening tasks. Ready for discharge to [facility] and self-care. PT-OP-F Manual Assessment Start: 08/26/20 08:45 Freq: Status: Active Protocol: Document 08/26/20 08:56 SAK (Rec: 02/01/21 11:11 [facility] [id number]) Manual Assessments Soft Tissue Assessment Soft Tissue Mobility Assessment decreased STM right piriformis Joint Mobility Assessment Joint Mobility Assessment decreased AP mobility lumbar spine PT-OP-G Mobility & Gait Start: 08/26/20 08:45 Freq: Status: Active Protocol: Document 08/26/20 08:56 [facility] (Rec: 08/26/20 11:11 [facility] [id number]) OP Mobility Evaluation Functional Movements Lifting and Carrying painful Squats painful OP Gait Assessment Gait Gait Assistance Required: Independent Assistive Devices Assistive Device None PT-OP-H Neuro Start: 08/26/20 08:45 Freq: Status: Active Protocol: Document 08/26/20 08:56 [facility] (Rec: 08/26/20 11:11 [facility] [id number]) Sensation Evaluation Gross Sensation Gross Sensation WNL Comments Summary Comments occasional tingling into right foot PT-OP-L Special Tests Start: 08/26/20 08:45 Freq: Status: Active Protocol: Document 08/26/20 08:56 [facility] (Rec: 08/26/20 11:11 [facility] [id number]) Special Tests Lumbar Spine Special Tests Stork Test Test Results increased movement right Straight Leg Raise Test Results negative gregorio Manual Traction Test Results positive decrease in pain PT-OP-M Strength Start: 08/26/20 08:45 Freq: Status: Active Protocol: Document 12/03/20 08:14 [facility] (Rec: 12/03/20 08:58 [facility] [id number]) Trunk Strength Trunk Manual Muscle Testing Testing Position Supine Flexion 4+ Good+ Extension 4- Good- Core Stabilization good all positions Hip Strength Hip Manual Muscle Testing Right Flexion (L2) 4+ Good+ Extension (S1) 4+ Good+ Abduction 4+ Good+ External Rotation 4+ Good+ Internal Rotation 4+ Good+ Left Flexion (L2) 4+ Good+ Extension (S1) 4+ Good+ Abduction 4+ Good+ External Rotation 4+ Good+ Internal Rotation 4+ Good+ PT-OP-Q Treatments Start: 08/26/20 08:45 Freq: Status: Active Protocol: Document 12/03/20 08:14 [facility] (Rec: 12/03/20 08:58 [facility] [id number]) Therapeutic Exercises Standing Exercises pec stretch Equipment Used doorway Reps/Minutes 2 wall posture Reps/Minutes 10x Comments including roll-ups and UE's arm angels Other Exercises T Equipment Used 55 cm ball Reps/Minutes 10x Comments cues for scapular retraction, incorporate core Manual Therapy Treatment Other Other Manual Treatments MMT LE's, core Self-Care/Home Management Treatment Education Patient Education Body Mechanics,Home Exercise Program,Posture Other Education lifting techniques with gardening for safety and back protection PT-OP-R Modalities Start: 08/26/20 08:45 Freq: Status: Active Protocol: Document 11/05/20 08:14 [facility] (Rec: 11/05/20 14:06 [facility] [id number]) Hot Pack/Cold Pack Treatment Cold Pack Patient Position Hooklying Treatment Duration (minutes) 10 Comments 90/90 posistion PT-OP-T Assessment and Plan Start: 08/26/20 08:45 Freq: Status: Active Protocol: Document 12/03/20 08:14 [facility] (Rec: 12/03/20 08:58 [facility] [id number]) Physical Therapy Assessment Goals 4 Impairment postural dysfunction Music Producer Goal (LTG) Patient to demonstrate improved postural awareness and postural alignment statically, and dynamically with functional activities 10/29/20: good goal progress, with patient demonstrating good ability to correct posture, still with tendency toward excess lumbar spine extension, forward head, posterior thorax, but much improved. LTG Duration goal 3 Impairment decreased weakness in core and poor core stabilization Short Term Goal (STG) Patient to be instructed in HEP to address impairments 10/29/20: ongoing progression STG Duration goal met Senior Care Goal (LTG) Patient to be independent and compliant with HEP and will demonstrate improved core strength to 5/5 and good core stabilization during functional activities 10/29/20: goal mostlymet LTG Duration goal met 2 Impairment pain with sneezing and coughing Senior Care Goal (LTG) Patient will be able to sneeze or cough without pain 10/29/20: goal met (if braces with core as taught) LTG Duration goal met 1 Impairment back, pelvis, and hip pain with usual exercises Senior Care Goal (LTG) Patient will be able to perform modified HEP routine and return to running with minimal to no pain 10/29/20: still some modifications to HEP, not yet back to usual distances running LTG Duration goal mostly met Assessment Summary Assessment excellent progress, mostly met all goals, independent with HEP and compliant. Further instruction of body mechanics and ther ex options today well understood. Patient ready for discharge from PT. Physical Therapy Plan Frequency and Duration Frequency of Treatment 1x/Week Duration of Treatment 8 weeks Plan of Care Start Date 10/29/20 Plan of Care End Date 12/29/20 Therapeutic Interventions Therapeutic Interventions Home Exercise Program,Joint Mobilizations,Manual Therapy, Neuromuscular Re-education, Patient/Caregiver Education, Self-Care/Home Management,Soft Tissue Mobilization,Taping, Therapeutic Activities, Therapeutic Exercises Modalities Hot Packs,Traction- Mechanical ,Ultrasound Discharge Physical Therapy Discharge Reasons Goals Met
== END 2020-12-06 08:20 | disposition home or self-care (01) ==
LOC: PHYS 08:15
PROVIDERS: PCP Family Medicine; Referring Provider Family Medicine; Visit Provider Family Medicine
DX: M54.5 Low back pain (principal); R53.1 Weakness; R29.3 Abnormal posture
CPT/HCPCS: 97010; 97110; 97116; 97140; 97161; 97535

== ENCOUNTER → 2021-03-28 11:48 | Outpatient (CLI) | payer OTHER, SELFPAY ==
[2021-03-28 12:22] LABS: COVID19 -Nasal RAPID Negative (Negative)
== END ==
PROVIDERS: PCP Family Medicine; Referring Provider Nurse Practitioner; Visit Provider Nurse Practitioner
DX: Z20.822 Contact with and (suspected) exposure to COVID-19 (principal)
CPT/HCPCS: 87635

== ENCOUNTER → 2021-04-01 14:52 | Outpatient (CLI) | payer OTHER, SELFPAY ==
[2021-04-01 15:18] LABS: COVID19 -Nasal RAPID Negative (Negative)
== END ==
PROVIDERS: PCP Family Medicine; Visit Provider Physician Assistant
DX: Z20.822 Contact with and (suspected) exposure to COVID-19 (principal)
CPT/HCPCS: 87635

== ENCOUNTER → 2021-04-07 13:13 | Outpatient (CLI) | payer OTHER, SELFPAY ==
[2021-04-07 17:44] LABS: COVID19 -Nasal RAPID Negative (Negative)
== END ==
PROVIDERS: PCP Family Medicine; Visit Provider Nurse Practitioner Family
DX: Z20.822 Contact with and (suspected) exposure to COVID-19 (principal)
CPT/HCPCS: 87635

== ENCOUNTER → 2021-05-26 14:50 | Outpatient (CLI) | payer OTHER, SELFPAY | PROVIDERS: PCP Family Medicine; Referring Provider Internal Medicine; Visit Provider Internal Medicine | DX: Z23 Encounter for immunization (principal) | CPT/HCPCS: 90471; 90686 ==

== ENCOUNTER → 2021-05-27 09:24 | Outpatient (CLI) | payer OTHER, SELFPAY ==
[2021-05-27 10:22] LABS: COVID19 -Nasal RAPID Negative (Negative)
== END ==
PROVIDERS: PCP Family Medicine; Referring Provider Nurse Practitioner Family; Visit Provider Nurse Practitioner Family
DX: Z20.822 Contact with and (suspected) exposure to COVID-19 (principal)
CPT/HCPCS: 87635

== ENCOUNTER → 2021-06-02 08:11 | Outpatient (CLI) | payer OTHER, SELFPAY ==
[2021-06-02 12:13] LABS: COVID19 -Nasal RAPID Negative (Negative)
== END ==
PROVIDERS: PCP Family Medicine; Visit Provider Physician Assistant
DX: Z20.822 Contact with and (suspected) exposure to COVID-19 (principal)
CPT/HCPCS: 87635

== ENCOUNTER → 2021-06-09 08:13 | Outpatient (CLI) | payer OTHER, SELFPAY ==
[2021-06-09 13:18] LABS: COVID19 -Nasal RAPID Negative (Negative)
== END ==
PROVIDERS: PCP Family Medicine; Referring Provider Physician Assistant; Visit Provider Physician Assistant
DX: Z20.822 Contact with and (suspected) exposure to COVID-19 (principal)
CPT/HCPCS: 87635

== ENCOUNTER → 2021-07-31 14:22 | Outpatient (CLI) | payer OTHER, SELFPAY ==
[2021-07-31 14:58] LABS: COVID19 -Nasal RAPID Negative (Negative)
== END ==
PROVIDERS: PCP Family Medicine; Visit Provider Nurse Practitioner Family
DX: Z20.822 Contact with and (suspected) exposure to COVID-19 (principal)
CPT/HCPCS: 87635

== ENCOUNTER → 2021-09-29 07:16 | Outpatient (CLI) | payer OTHER, SELFPAY ==
[2021-09-29 08:14] LABS: Cholesterol 208 mg/dL (140-199); HDL Cholesterol 109 mg/dL (40-60); LDL Cholesterol Calculated 89 mg/dL (<100); Triglycerides 49 mg/dL (35-150)
[2021-09-29 08:15] LABS: Hemoglobin A1C% w Est Avg Glu 5.2 % (4.0-6.0)
[2021-09-29 08:31] LABS: Vitamin D 25 Hydroxy (D3) 66.5 ng/mL (30.0-100.0)
[2021-09-29 08:45] LABS: TSH w/ Reflex to FT4 2.21 uIU/mL (0.47-4.68)
[2021-09-29 09:21] LABS: Folate 13.3 ng/mL (2.76-20.0); Vitamin B12 330 pg/mL (239-931)
[2021-09-30 03:57] LABS: Homocysteine 9.7 umol/L (0.0-14.5)
[2021-10-01 00:07] LABS: Methylmalonic Acid,Serum 132 nmol/L (0-378)
[2021-10-04 13:45] LABS: Vitamin B6 46.5 ug/L (2.0-32.8)
== END ==
PROVIDERS: PCP Family Medicine; Referring Provider Family Medicine; Visit Provider Family Medicine
DX: Z82.49 Family history of ischemic heart disease and other diseases of the circulatory system (principal); Z83.3 Family history of diabetes mellitus; E53.8 Deficiency of other specified B group vitamins; K30 Functional dyspepsia
CPT/HCPCS: 36415; 80061; 82306; 82607; 82746; 83036; 83090; 83921; 84207; 84443

== ENCOUNTER → 2022-06-12 16:27 | Outpatient (CLI) | payer OTHER, SELFPAY | PROVIDERS: PCP Family Medicine; Referring Provider Internal Medicine; Visit Provider Internal Medicine | DX: Z23 Encounter for immunization (principal) | CPT/HCPCS: 90471; 90686 ==

== ENCOUNTER → 2022-07-14 10:25 | Outpatient (CLI) | payer OTHER, SELFPAY ==
--- NOTE | 2022-07-14 | DI.US.S_ITS ---
LIMITED ULTRASOUND OF LEFT BREAST: 07/14/2022 CLINICAL: Previous pain/lump. Improved. Comparison is made to exams dated: 07/14/2022 mammogram - [facility], 05/03/2019 mammogram, 05/03/2019 ultrasound biopsy, 03/30/2019 mammogram, and 03/30/2019 ultrasound - out side. Real-time ultrasound of the left breast retroareolar was performed. Lerma scale images of the real-time examination were reviewed. No significant abnormalities were seen sonographically in the left breast in the region of clinical concern. IMPRESSION: NEGATIVE There is no sonographic evidence of malignancy. A 3 year screening mammogram is recommended. Exam findings were conveyed to the patient. Patient is advised to monitor for significant change. Clinical follow-up as needed. This exam was interpreted at Station ID: [id number]. Electronically Signed By: Nishant Dillon M.D. slc/:07/14/2022 11:20:01 letter sent: Normal Exam Ultrasound BI-RADS: 1 Negative
--- NOTE | 2022-07-14 | DI.MG.S_ITS ---
BILATERAL DIGITAL DIAGNOSTIC MAMMOGRAM 3D/2D: 07/14/2022 CLINICAL: Mastodynia. Comparison is made to exams dated: 05/03/2019 mammogram and 03/30/2019 mammogram - out side. Both breasts are extremely dense, which lowers the sensitivity of mammography (category d />75% glandular tissue). Biopsy clips in both breasts. No significant masses, calcifications, or other findings are seen in either breast. IMPRESSION: INCOMPLETE: NEEDS ADDITIONAL IMAGING EVALUATION No mammographic evidence of malignancy. A targeted ultrasound is recommended and will immediately follow. This exam was interpreted at Station ID: [id number]. NOTE: For mammograms, a report in lay terms will be sent to the patient. Approximately 15% of breast malignancies will not be visualized mammographically. In the management of a palpable breast mass, a negative mammogram must not discourage biopsy of a clinically suspicious lesion. Electronically Signed By: Nishant Dillon M.D. slc/:07/14/2022 11:25:46 ACR BI-RADS Category 0: Incomplete 3340F
== END ==
PROVIDERS: PCP Family Medicine; Referring Provider Family Medicine; Visit Provider Pediatrics
DX: N64.4 Mastodynia (principal); R92.2 Inconclusive mammogram
CPT/HCPCS: 76642; 77066; G0279

== ENCOUNTER → 2022-11-25 09:18 | Outpatient (CLI) | payer OTHER, SELFPAY | PROVIDERS: PCP Family Medicine; Referring Provider Family Medicine; Visit Provider Family Medicine | DX: R00.2 Palpitations (principal) | CPT/HCPCS: 93242 ==

== ENCOUNTER → 2022-12-26 09:43 | Outpatient (CLI) | payer OTHER, SELFPAY ==
[2022-12-26 10:08] LABS: Add Manual Diff / Slide Review NO; Basophils Absolute Auto 0 /uL (0-100); Basophils Percent Auto 0.7 % (0-2); Eosinophils Absolute Auto 300 /uL (0-450); Eosinophils Percent Auto 5.8 % (2-4); Hematocrit 40.7 % (36-46); Hemoglobin 13.9 g/dL (12.0-16.0); Lymphocytes Absolute Auto 1700 /uL (1100-4500); Mean Corpuscular HGB Conc 34.1 % (30-36); Mean Corpuscular Hemoglobin 29.7 PG (26-34); Monocytes Absolute Auto 300 /uL (0-900); Monocytes Percent Auto 5.8 % (3-14); Neutrophils Absolute Auto 3200 /uL (1500-7000); Neutrophils Percent Auto 57.7 % (50-75); Platelet Count 240 X10^3/uL (150-400); Red Blood Cell Count 4.67 X10^6/uL (4.0-5.2); Red Cell Distribution Width 13.2 % (11.6-14.8); White Blood Cell Count 5.6 X10^3/uL (4.5-11.0)
[2022-12-26 10:27] LABS: Alanine Aminotransferase 19 IU/L (<35); Albumin 4.5 g/dL (3.5-5.0); Albumin Globulin Ratio 1.4 (1.0-2.8); Alkaline Phosphatase 50 U/L (38-126); Aspartate Aminotransferase 23 IU/L (14-36); BUN Creatinine Ratio 13.6 (6-22); Bilirubin Total 0.9 mg/dL (0.2-1.3); Blood Urea Nitrogen 11 mg/dL (7-17); Calcium 8.9 mg/dL (8.4-10.2); Carbon Dioxide 26 mmol/L (22-32); Chloride 99 mmol/L (98-107); Cholesterol 215 mg/dL (140-199); Estimated Glomerular Filt Rate > 60 mL/min (>60); Globulin 3.3 g/dL (1.7-4.1); Glucose 97 mg/dL (70-100); HDL Cholesterol 106 mg/dL (40-60); HEMOLYSIS < 15 (0-50); LDL Cholesterol Calculated 97 mg/dL (<100); Potassium 3.6 mmol/L (3.4-5.1); Sodium 133 mmol/L (137-145); Total Protein 7.8 g/dL (6.3-8.2); Triglycerides 60 mg/dL (35-150)
[2022-12-26 10:57] LABS: TSH w/ Reflex to FT4 1.48 uIU/mL (0.47-4.68)
[2022-12-26 13:37] LABS: Follicle Stimulating Hormone 6.86 mIU/mL
[2023-01-01 11:36] LABS: Anti Mullerian Hormone 1.82 ng/mL (.)
== END ==
PROVIDERS: PCP Family Medicine; Referring Provider Family Medicine; Visit Provider Family Medicine
DX: F41.9 Anxiety disorder, unspecified (principal); E78.89 Other lipoprotein metabolism disorders; L30.9 Dermatitis, unspecified; J45.990 Exercise induced bronchospasm; K21.9 Gastro-esophageal reflux disease without esophagitis; Z31.69 Encounter for other general counseling and advice on procreation
CPT/HCPCS: 36415; 80053; 80061; 82397; 83001; 84443; 85025

== ENCOUNTER → 2023-05-11 | Outpatient (CLI) | payer OTHER, SELFPAY | PROVIDERS: PCP Family Medicine; Referring Provider Family Medicine; Visit Provider Family Medicine | DX: Z23 Encounter for immunization (principal) | CPT/HCPCS: 90471; 90686 ==

== ENCOUNTER → 2024-01-24 12:06 | Outpatient (CLI) | payer OTHER, SELFPAY ==
--- NOTE | 2024-01-24 12:08 | DI.MG.S_ITS ---
BILATERAL DIGITAL DIAGNOSTIC MAMMOGRAM 3D/2D: 01/24/2024 CLINICAL: Breast mass. Comparison is made to exams dated: 07/14/2022 mammogram - [facility], 05/03/2019 mammogram, and 03/30/2019 mammogram - out side. Both breasts are extremely dense, which lowers the sensitivity of mammography (category d />75% glandular tissue). There are benign appearing lymph nodes in the right axilla. No significant masses, calcifications, or other findings are seen in either breast. IMPRESSION: INCOMPLETE: NEEDS ADDITIONAL IMAGING EVALUATION There is no abnormality seen in the right breast to correspond with the area of clinical concern and palpable abnormality indicated by triangular marker in the middle depth in the upper outer quadrant, however, ultrasound is recommended for further evaluation and is scheduled to immediately follow this examination. Ultrasound is also recommended to evaluate sonographic appearance of right axillary lymph nodes. Based on the Tyrer Cuzick model (a risk assessment model) the patient's lifetime risk is 15.3% and her 10 year risk is 1.8%. According to the ACR, ACS, and NCCN guidelines, an annual breast MRI exam along with mammogram is recommended if the patient's lifetime risk is 20% or greater. This exam was interpreted at Station ID: [id number]. NOTE: For mammograms, a report in lay terms will be sent to the patient. Approximately 15% of breast malignancies will not be visualized mammographically. In the management of a palpable breast mass, a negative mammogram must not discourage biopsy of a clinically suspicious lesion. Electronically Signed By: Topher Bradshaw M.D. aty/:01/24/2024 13:37:11 ACR BI-RADS Category 0: Incomplete 3340F
--- NOTE | 2024-01-24 12:08 | DI.US.S_ITS ---
ULTRASOUND OF RIGHT BREAST AND AXILLA: 01/24/2024 CLINICAL: Follow up from addtional views. Comparison is made to exams dated: 01/24/2024 mammogram, 07/14/2022 ultrasound, 07/14/2022 mammogram - [facility], and 05/03/2019 mammogram - out side. Color flow and real-time ultrasound of the right breast axilla were performed. There are benign appearing lymph nodes in the right axilla. No significant abnormalities were seen sonographically in the right breast. IMPRESSION: BENIGN There is no sonographic evidence of malignancy. There is no abnormality seen in the right breast to correspond with the area of clinical concern and palpable abnormality in the upper outer quadrant, however, recommend clinical follow up for persistent or worsening symptoms, or development of any clinically suspicious findings. Normal appearing right axillary lymph nodes. A 1 year screening mammogram is recommended. Findings and recommendations were conveyed to the patient during today's evaluation. This exam was interpreted at Station ID: [id number]. Electronically Signed By: Topher Bradshaw M.D. at/:01/24/2024 13:40:21 letter sent: Clinical Evaluation Ultrasound BI-RADS: 2 Benign
== END ==
LOC: MAMMO 12:07
PROVIDERS: PCP Family Medicine; Referring Provider Nurse Practitioner Family; Visit Provider Nurse Practitioner Family
DX: R92.8 Other abnormal and inconclusive findings on diagnostic imaging of breast (principal); N63.10 Unspecified lump in the right breast, unspecified quadrant; R92.343 Mammographic extreme density, bilateral breasts
CPT/HCPCS: 76642; 77066; G0279

== ENCOUNTER → 2024-02-03 07:36 | Outpatient (CLI) | payer OTHER, SELFPAY ==
[2024-02-03 08:54] LABS: Add Manual Diff / Slide Review NO; Basophils Absolute Auto 100 /uL (0-100); Basophils Percent Auto 0.8 % (0-2); Eosinophils Absolute Auto 300 /uL (0-450); Eosinophils Percent Auto 3.6 % (2-4); Hematocrit 41.4 % (36-46); Hemoglobin 14.1 g/dL (12.0-16.0); Lymphocytes Absolute Auto 1800 /uL (1100-4500); Lymphocytes Percent Auto 24.9 % (25-40); Mean Corpuscular Hemoglobin 29.3 PG (26-34); Mean Corpuscular Volume 86.3 fL (80-100); Monocytes Absolute Auto 400 /uL (0-900); Monocytes Percent Auto 5.5 % (3-14); Neutrophils Absolute Auto 4600 /uL (1500-7000); Neutrophils Percent Auto 65.2 % (50-75); Platelet Count 250 X10^3/uL (150-400); Red Blood Cell Count 4.79 X10^6/uL (4.0-5.2); Red Cell Distribution Width 13.1 % (11.6-14.8); White Blood Cell Count 7.1 X10^3/uL (4.5-11.0)
[2024-02-03 09:15] LABS: HEMOLYSIS < 15 (0-50)
[2024-02-03 09:16] LABS: HEMOLYSIS < 15 (0-50); Iron 70 ug/dL (37-170)
[2024-02-03 09:18] LABS: Alanine Aminotransferase 14 IU/L (<35); Albumin 4.7 g/dL (3.5-5.0); Albumin Globulin Ratio 1.3 (1.0-2.8); Alkaline Phosphatase 59 U/L (38-126); Aspartate Aminotransferase 22 IU/L (14-36); BUN Creatinine Ratio 19.1 (6-22); Bilirubin Total 0.5 mg/dL (0.2-1.3); Blood Urea Nitrogen 18 mg/dL (7-17); Calcium 9.2 mg/dL (8.4-10.2); Carbon Dioxide 23 mmol/L (22-32); Chloride 105 mmol/L (98-107); Cholesterol 215 mg/dL (140-199); Estimated Glomerular Filt Rate > 60 mL/min (>60); Gamma Glutamyl Transpeptidase 11 U/L (12-43); Globulin 3.5 g/dL (1.7-4.1); Glucose 93 mg/dL (70-100); HDL Cholesterol 110 mg/dL (40-60); LDL Cholesterol Calculated 96 mg/dL (<100); Magnesium 1.9 mg/dL (1.6-2.3); Phosphorous 3.6 mg/dL (2.5-4.5); Potassium 4.7 mmol/L (3.4-5.1); Sodium 137 mmol/L (137-145); Total Protein 8.2 g/dL (6.3-8.2); Triglycerides 43 mg/dL (35-150)
[2024-02-03 09:24] LABS: High Sensitivity CRP - Cardiac 3.4 mg/L (1.0-3.0)
[2024-02-03 09:27] LABS: Percent Iron Saturation 25 % (15-50); Total Iron Binding Capacity 284 ug/dL (265-497); Transferrin 233 mg/dL (206-381)
[2024-02-03 09:38] LABS: Vitamin D 25 Hydroxy (D3) 33.3 ng/mL (30.0-100.0)
[2024-02-03 09:51] LABS: Ferritin 15 ng/mL (6-137)
[2024-02-03 12:49] LABS: Hemoglobin A1C% w Est Avg Glu 5.2 % (4.0-6.0)
[2024-02-05 03:41] LABS: Homocysteine 11.6 umol/L (0.0-14.5)
== END ==
PROVIDERS: PCP Family Medicine; Referring Provider Family Medicine; Visit Provider Family Medicine
DX: N97.9 Female infertility, unspecified (principal)
CPT/HCPCS: 36415; 80053; 80061; 82306; 82728; 82977; 83036; 83090; 83525; 83540; 83550; 83735; 84100; 84144; 84630; 85025; 86140

== ENCOUNTER → 2024-02-15 07:29 | Outpatient (CLI) | payer OTHER, SELFPAY ==
[2024-02-15 11:20] LABS: Luteinizing Hormone 3.71 mIU/mL
[2024-02-15 11:21] LABS: Free T3, Triiodothyronine Free 3.51 pg/mL (2.77-5.27); Prolactin 7.8 ng/mL (3.0-18.6)
[2024-02-15 11:34] LABS: Thyroid Stimulating Hormone 0.848 uIU/mL (0.47-4.68)
[2024-02-15 11:35] LABS: Estradiol, Total 38.6 pg/mL
[2024-02-15 11:37] LABS: Testosterone 53.2 ng/dL (5.71-77.0)
[2024-02-16 07:36] LABS: Sex Hormone Binding Globulin 76.7 nmol/L (24.6-122.0); Thyroid Peroxidase Antibodies <9 IU/mL (0-34)
[2024-02-16 19:36] LABS: Anti Thyroglobulin Antibody 2.4 IU/mL (0.0-0.9)
[2024-02-23 14:09] LABS: Anti Mullerian Hormone 1.44 ng/mL (.)
== END ==
PROVIDERS: PCP Family Medicine; Referring Provider Family Medicine; Visit Provider Family Medicine
DX: N97.9 Female infertility, unspecified (principal)
CPT/HCPCS: 36415; 82397; 82670; 83001; 83002; 84146; 84270; 84403; 84439; 84443; 84481; 86376; 86800

== ENCOUNTER → 2024-05-09 15:25 | Outpatient (CLI) | payer OTHER, SELFPAY ==
[2024-05-09 16:35] LABS: Vitamin D 25 Hydroxy (D3) 60.9 ng/mL (30.0-100.0)
[2024-05-09 16:53] LABS: Ferritin 29 ng/mL (6-137)
== END ==
PROVIDERS: PCP Family Medicine; Referring Provider Family Medicine; Visit Provider Family Medicine
DX: N97.9 Female infertility, unspecified (principal)
CPT/HCPCS: 36415; 82306; 82397; 82728; 83090

== ENCOUNTER → 2024-05-31 15:29 | Outpatient (CLI) | payer OTHER, SELFPAY | PROVIDERS: PCP Family Medicine; Referring Provider Internal Medicine; Visit Provider Internal Medicine | DX: Z23 Encounter for immunization (principal) | CPT/HCPCS: 90471; 90656 ==

== ENCOUNTER → 2024-06-08 07:50 | Outpatient (CLI) | payer OTHER, SELFPAY ==
[2024-06-08 09:30] LABS: High Sensitivity CRP - Cardiac 5.8 mg/L (1.0-3.0)
[2024-06-09 04:09] LABS: Apolipoprotein B 79 mg/dL (<90)
[2024-06-12 03:39] LABS: Lipoprotein (a) 135.7 nmol/L (<75.0)
== END ==
PROVIDERS: PCP Family Medicine; Referring Provider Family Medicine; Visit Provider Family Medicine
DX: E78.89 Other lipoprotein metabolism disorders (principal); R79.82 Elevated C-reactive protein (CRP)
CPT/HCPCS: 36415; 82172; 83695; 86140